=== PATIENT | male | born 1965 | race Caucasian/White ===

== ENCOUNTER 2018-04-13 10:55 | Emergency (ER) | payer OTHER ==
[2018-04-13 11:13] VITALS: BP 116/75; PULSE 90; BMI 28.1
--- NOTE | 2018-04-13 11:38 | PDOC ---
Attending Attestation - HPI HPI: 04/13/18 12:55 The patient is a 52 year old male with a significant PMH of diabetes and hyperlipidemia who presents to the emergency department with a worsening right foot wound for about 3 weeks. The patient reports that he was wearing the wrong shoes while playing basketball 3 weeks ago by which he obtained a blister on his right great toe. The patient reports that his blister never healed. He states that he has been experiencing some associated clarke discharge with his right great toe blister. The patient states that he has been putting antibiotic cream on his toe but, denies seeing a doctor regarding his wound. The patient denies any other symptoms. He denies any fever, chills, nausea, vomit, diarrhea ,constipation or urinary symptoms. He denies any chest pain, shortness of breath , headache and dizziness. The patient denies any other complaints. PCP: Dr. Navarro - Physicial Exam PE: 04/13/18 12:55 GENERAL: Awake, alert, and fully oriented, in no acute distress HEAD: No signs of trauma EYES: PERRLA, EOMI, sclera anicteric, conjunctiva clear ENT: Auricles normal inspection, hearing grossly normal, nares patent, oropharynx clear without exudates. Moist mucosa NECK: Normal ROM, supple, no lymphadenopathy, JVD, or masses LUNGS: Breath sounds equal, clear to auscultation bilaterally. No wheezes, and no crackles HEART: Regular rate and rhythm, normal S1 and S2, no murmurs, rubs or gallops ABDOMEN: Soft, nontender, normoactive bowel sounds. No guarding, no rebound. No masses EXTREMITIES: (+)decreased sensation in right foot, swelling in right ankle, wound under great toe and between 1st and 2nd digit, tender at proximal aspect of wound over bone, soft tissue swelling, warm and red. Normal range of motion. No clubbing or cyanosis. No cords. NEUROLOGICAL: Cranial nerves II through XII grossly intact. Normal speech, normal gait SKIN: Warm, Dry, normal turgor, no rashes or lesions noted. Documentation prepared by Clint Panchal, acting as medical customer service representative for Neelima Beth MD <Clint Panchal - Last Filed: 04/13/18 12:55> - Resident Resident Name: Bill Torres - ED Attending Attestation I have performed the following: I have examined & evaluated the patient, The case was reviewed & discussed with the resident, I agree w/resident's findings & plan, Exceptions are as noted - Medical Decision Making 04/13/18 11:38 I, Dr. Neelima Beth, DO, attest that this document has been prepared under my direction and personally reviewed by me in its entirety. I further attest, that it accurately reflects all work, treatment, procedures and medical decision -making performed by me. 04/13/18 12:17 a/p: 52yo male with DM with R big toe ulceration, swelling, mild redness, no lymphangitic spread -concern for diabetic foot wound -has not had abx during this injury -no active drainage from the wound -no lymphangitic spread -mild swelling to the foot, no crepitus palpated -concern given pain to the toe - will obtain foot xray, labs -no f/c or systemic symptoms -will monitor and reassess 04/13/18 13:[address] Escalante - will see the patient in wound care clinic on Monday at 11am <Neelima Beth - Last Filed: 04/13/18 15:54> Discharge Disposition - Discharge Dispostion Decision to Admit order: No <Neelima Beth - Last Filed: 04/13/18 15:54> - Diagnosis Foot ulcer - Discharge Dispostion Disposition: HOME Condition at time of disposition: Stable - Prescriptions Prescriptions: Clindamycin [Cleocin -] 450 mg PO Q8H #90 capsule - Referrals Referrals: Teo Navarro MD [Primary Care Provider] - Jose Luis Escalante MD [Staff Physician] - - Patient Instructions Printed Discharge Instructions: DI for Wound Infection Additional Instructions: Please follow up on Monday morning at 11 am in the wound care clinic with Dr. Escalante. - Post Discharge Activity
--- NOTE | 2018-04-13 12:03 | PDOC ---
History of Present Illness - General Chief Complaint: Wound Stated Complaint: RT FOOT WOUND Time Seen by Provider: 04/13/18 11:38 History Source: Patient Exam Limitations: No Limitations - History of Present Illness Initial Comments: 04/13/18 11:57 The patient is a 52M with a PMH of DM and HLD who presents to the ER with R great toe pain. The patient states that he was playing basketball in the wrong shoes and developed a blister 3 weeks ago. Since then, the skin has peeled away and it has not healed. He admits to aldana drainage from the site but denies fevers, chills, nausea, vomiting. He has never had this in the past. Past History - Past Medical History Allergies/Adverse Reactions: Allergies Allergy/AdvReac Type Severity Reaction Status Date / Time No Known Allergies Allergy Verified 04/13/18 11:07 Home Medications: Ambulatory Orders Atorvastatin Calcium 20 mg PO DAILY 04/13/18 Carbamazepine 200 mg PO BID 04/13/18 Clindamycin [Cleocin -] 450 mg PO Q8H #90 capsule 04/13/18 Insulin Glargine,Hum.rec.anlog [Basaglar Kwikpen U-100] 0 unit SQ DAILY Lisinopril [Zestril] 2.5 mg PO DAILY 04/13/18 Tamsulosin HCl 0.4 mg PO DAILY 04/13/18 COPD: No Diabetes: Yes - Suicide/Smoking/Psychosocial Hx Smoking History: Never smoked Review of Systems - Review of Systems Able to Perform ROS?: Yes Is the patient limited Malian proficient: No Constitutional: No: Chills, Fever HEENTM: No: Recent change in vision, Hearing Loss ABD/GI: No: Nausea, Vomiting Integumentary: Yes: Lesions (R great toe). No: Change in Color Neurological: Yes: Numbness (Chronic). No: Tingling, Weakness *Physical Exam - Vital Signs Last Vital Signs Temp Pulse Resp BP Pulse Ox 97.9 F 90 19 116/75 98 04/13/18 11:07 04/13/18 11:07 04/13/18 11:07 04/13/18 11:07 04/13/18 11:07 - Physical Exam Comments: 04/13/18 11:59 GENERAL: Well developed, well nourished. Awake and alert. No acute distress. HEENT: Normocephalic, atraumatic. Hearing grossly normal. Moist mucous membranes. NECK: Supple. Full ROM. MUSCULOSKELETAL: Normal range of motion at all joints. No bony deformities or tenderness. EXTREMITIES: 1.5x1cm wound on plantar surface of R great toe down to dermis. No erythema or drainage noted. No cyanosis. No clubbing. 1+ edema in b/l LE. No calf tenderness or swelling. SKIN: Warm and dry. Normal capillary refill. No rashes. No jaundice. NEUROLOGICAL: Alert, awake, appropriate. Cranial nerves 2-12 intact. Normal speech. Gait is normal without ataxia. PSYCHIATRIC: Cooperative. Good eye contact. Appropriate mood and affect. ED Treatment Course - LABORATORY CBC & Chemistry Diagram: 04/13/18 12:35 04/13/18 12:35 - RADIOLOGY Radiology Studies Ordered: Category Date Time Status FOOT-RIGHT [RAD] Stat Radiology 04/13/18 11:53 Ordered Medical Decision Making - Medical Decision Making 04/13/18 12:01 The patient is a 52M with a PMH of DM and HLD who presents to the ER with complaints of R plantar ulcer. Will order labs and imaging, concern for osteo vs infected diabetic foot wound vs nonhealing diabetic ulcer. 04/13/18 13:05 Preliminary read of foot XR negative. Pending labs. 04/13/18 13:21 Labs WNL. Will d/c pt home with wound f/u and abx. *DC/Admit/Observation/Transfer Diagnosis at time of Disposition: Foot ulcer - Discharge Dispostion Disposition: HOME Condition at time of disposition: Stable - Prescriptions Prescriptions: Clindamycin [Cleocin -] 450 mg PO Q8H #90 capsule - Referrals Referrals: Teo Navarro MD [Primary Care Provider] - Jose Luis Escalante MD [Staff Physician] - - Patient Instructions Printed Discharge Instructions: DI for Wound Infection Additional Instructions: Please follow up on Monday morning at 11 am in the wound care clinic with Dr. Escalante. - Post Discharge Activity
[2018-04-13 12:45] LABS: BASO % 0.8 % (0-2.0); EOS % 2.5 % (0-4.5); HEMATOCRIT 34.7 % (35.4-49); HEMOGLOBIN 11.8 GM/dL (11.7-16.9); MCH 29.5 pg (25.7-33.7); MEAN CELL VOLUME 86.9 fl (80-96); MEAN PLT VOLUME 7.9 fl (7.5-11.1); MONO % 10.2 % (3.8-10.2); NEUT % 66.5 % (42.8-82.8); PLATELET COUNT 231 K/MM3 (134-434); RDW 13.5 % (11.9-15.9); WHITE BLOOD COUNT 7.2 K/mm3 (4.0-10.0)
[2018-04-13 13:03] LABS: ALBUMIN 3.7 g/dl (3.4-5.0); ALK PHOS 90 U/L (45-117); ANION GAP 5 MMOL/L (8-16); BILIRUBIN,TOTAL 0.1 mg/dL (0.2-1.0); BLOOD UREA NITROGEN 18 mg/dL (7-18); CALCIUM 8.7 mg/dL (8.5-10.1); CHLORIDE 106 mmol/L (98-107); CO2 29 mmol/L (21-32); CREATININE 1.5 mg/dL (0.7-1.3); GLUCOSE,RANDOM 232 mg/dL (74-106); POTASSIUM 4.7 mmol/L (3.5-5.1); SGOT/AST 16 U/L (15-37); SGPT/ALT 20 U/L (12-78); SODIUM 140 mmol/L (136-145); TOT PROT 7.3 g/dl (6.4-8.2)
[2018-04-13] MEDS ORDERED: CLINDAMYCIN 600MG PREMIX IVPB 600 MG/50 ML BAG IVPB ONE ×2 (13:16→14:48)
[2018-04-13 16:46] VITALS: TEMP 98
== END 2018-04-13 16:46 | disposition home or self-care (01) ==
LOC: JER 10:55
DX: E78.5 Hyperlipidemia, unspecified (principal); E11.621 Type 2 diabetes mellitus with foot ulcer; R05 Cough
CPT/HCPCS: 36415; 73630-TC-RT-FY; 80053; 85025; 85651; 86140; 96365; 99282-25

== ENCOUNTER 2018-05-17 17:52 | Inpatient (IN) | payer OTHER ==
--- NOTE | 2018-05-17 18:12 | PDOC ---
Rapid Medical Evaluation Time Seen by Provider: 05/17/18 18:07 Medical Evaluation: Allergies Allergy/AdvReac Type Severity Reaction Status Date / Time No Known Allergies Allergy Verified 04/16/18 10:31 I have performed a brief in-person evaluation of this patient. The patient presents with a chief complaint of: insulin dependent DM. wounds to right foot. tactile fever today Pertinent physical exam findings: right foot covered and in boot I have ordered the following: labs, xray of right toes The patient will proceed to the ED for further evaluation. Discharge Disposition - Diagnosis Toe infection - Referrals - Patient Instructions - Post Discharge Activity
[2018-05-17 19:03] LABS: BASO % 0.6 % (0-2.0); EOS % 1.1 % (0-4.5); HEMATOCRIT 31.8 % (35.4-49); HEMOGLOBIN 10.5 GM/dL (11.7-16.9); LYMPH % 9.3 % (8-40); MCH 28.6 pg (25.7-33.7); MCHC 33.2 g/dl (32.0-35.9); MEAN CELL VOLUME 86.4 fl (80-96); MEAN PLT VOLUME 7.7 fl (7.5-11.1); MONO % 11.2 % (3.8-10.2); NEUT % 77.8 % (42.8-82.8); PLATELET COUNT 207 K/MM3 (134-434); RBC 3.68 M/mm3 (4.00-5.60); RDW 13.4 % (11.9-15.9); WHITE BLOOD COUNT 12.5 K/mm3 (4.0-10.0)
--- NOTE | 2018-05-17 19:07 | PDOC ---
History of Present Illness - General Chief Complaint: Wound Stated Complaint: RT FOOT PAIN Time Seen by Provider: 05/17/18 18:07 - History of Present Illness Initial Comments: 52yo M with DM and HLD presenting with diabetic foot ulcer on right foot. The wound started as a blister two months ago on the great toe. Was seen in this ED in March for this. Referred to wound care and seen by Dr. Escalante. Patient received 18 out of 20 prescribed hyperbaric wound healing sessions and completed antibiotic course, clindamycin (per chart review). He noticed in the last day or two that the wound had increased in size to the second, third, and fourth digits and has drained clear fluid. Patient reports subjective fever and chills at home. Denies chest pain, shortness of breath, or abdominal pain. Past History - Past Medical History Allergies/Adverse Reactions: Allergies Allergy/AdvReac Type Severity Reaction Status Date / Time benzydamine Allergy Difficulty Verified 05/17/18 22:18 Breathing Home Medications: Ambulatory Orders Atorvastatin Calcium 20 mg PO DAILY 04/13/18 Carbamazepine 200 mg PO BID 04/13/18 Insulin Glargine,Hum.rec.anlog [Basaglar Kwikpen U-100] 0 unit SQ DAILY Lisinopril [Zestril] 2.5 mg PO DAILY 04/13/18 Tamsulosin HCl 0.4 mg PO DAILY 04/13/18 COPD: No Diabetes: Yes Dialysis: Yes HTN: Yes Hypercholesterolemia: Yes - Suicide/Smoking/Psychosocial Hx Smoking History: Never smoked Have you smoked in the past 12 months: No Information on smoking cessation initiated: No Hx Alcohol Use: No Drug/Substance Use Hx: No Review of Systems - Review of Systems Comments:: Constitutional: +fever, +chills Cardiovascular: no chest pain, no palpitations Respiratory: no cough, no shortness of breath Gastrointestinal: no abdominal pain, +nausea, no vomiting Musculoskeletal: no myalgia, no arthralgia Skin: +foot wound, no itching Neurologic: +headache, no dizziness *Physical Exam - Vital Signs Last Vital Signs Temp Pulse Resp BP Pulse Ox 98.6 F 118 H 20 105/72 99 05/17/18 18:08 05/17/18 18:08 05/17/18 18:08 05/17/18 18:05/17/18 18:08 - Physical Exam Comments: General: Awake, alert, and fully oriented, in no acute distress Head: no signs of trauma Eyes: EOMI, sclera anicteric ENT: Moist mucus membranes, Neck: Normal ROM, supple Lungs: Lungs clear, Normal breath sounds Cardio: Regular rhythm, S1 and S2 present Abdomen: Soft, nontender Extremities: Normal range of motion, Distal pulses present R. foot: Neurovascularly intact with 2+ pulse; Grade 2 ulcer: 1st, 2nd, 3rd, 4th digits with sloughed skin granulation tissue and lymphatic drainage SKIN: Warm, Dry, normal turgor Neurologic: Cranial nerves II through XII grossly intact. Normal speech ED Treatment Course - LABORATORY CBC & Chemistry Diagram: 05/17/18 18:45 05/17/18 18:45 - ADDITIONAL ORDERS Additional order review: 05/17/18 18:45 RBC 3.68 L MCV 86.4 MCHC 33.2 RDW 13.4 MPV 7.7 Neutrophils % 77.8 Lymphocytes % 9.3 D Monocytes % 11.2 H Eosinophils % 1.1 Basophils % 0.6 Medical Decision Making - Medical Decision Making 52yo M with DM and HLD presenting with diabetic ulcer on right foot. Reported subjective fever and chills. Labs: WBC 12.5 (up from 7.2 in 04/13) Xray: no air in soft tissue, likely not osteomyelitic Failed outpatient clindamycin. Ordered vancomycin and zosyn 05/17/18 20:46 Dr. Beth discussed case with inpatient team who accepted patient for admission. 05/18/18 00:40 *DC/Admit/Observation/Transfer Diagnosis at time of Disposition: Toe infection, Diabetic foot ulcer - Discharge Dispostion Condition at time of disposition: Fair - Referrals - Patient Instructions - Post Discharge Activity
--- NOTE | 2018-05-17 19:25 | PDOC ---
Attending Attestation - HPI HPI: 05/17/18 21:47 The patient is a 52 year old male with a significant past medical history of diabetes and HLD who presents to the ED with worsening right toe swelling and draining for the past 2 days. Patient is currently being treated for diabetic toe infection in his right toe. Patient grew out MRSA and pseudomonas on all of his toes and currently being treated at wound care. Patient states he finished his course of clindamycin 10 days ago. Patient comes into the ED today for worsening swelling and draining of his 2nd, 3rd, 4th, and 5th right phalanges. He reports cramping like pain on his toes that radiates to his right ankle, knee and upper thigh. Patient states he keeps his right foot dry and denies wearing any wet shoes. Denies fever or chills. Denies any other symptoms. Documentation prepared by Carri Ray, acting as pediatrician/medical doctor for Neelima Beth DO - Physicial Exam PE: 05/17/18 21:48 Constitutional: Awake, alert, oriented. No acute distress. Head: Normocephalic. Atraumatic Musculoskeletal: + right foot: under the great toe there is a wound, no purulent drainage some granulated tissue. In the proximal area of the toe and across bases of MTP there us fogginess in the fluid tissue, no erythema. There is tissue breakdown, no sangisagnous breakdown, there is pain and edema. Pedal pulses intact. Slight edema of right foot compared to left, sensation intact, normal capillary refill. Neurological: Alert and oriented to person, place, and time. Normal speech. Psychiatric: Good eye contact. Normal interaction, affect and behavior. <Carri Ray - Last Filed: 05/17/18 21:47> - Resident Resident Name: Chanelle Osuna - ED Attending Attestation I have performed the following: I have examined & evaluated the patient, The case was reviewed & discussed with the resident, I agree w/resident's findings & plan, Exceptions are as noted - Medical Decision Making 05/17/18 19:25 I, Dr. Neelima Beth, DO, attest that this document has been prepared under my direction and personally reviewed by me in its entirety. I further attest, that it accurately reflects all work, treatment, procedures and medical decision -making performed by me. 05/17/18 21:42 a/p: 52yo male with dm with swelling, drainage from R foot -being treated with HBO and wound care to injury to L big toe - finished clinda and using santyl to R big toe -now with serosanguinous drainage and swelling, bogginess to rest of toes and tissue breakdown -pt will need inpt abx and eval by Dr. Escalante -will send labs, cultures -prior wound culture grows MRSA and pseudomonas 05/17/18 21:46 microblog sent to [facility] for admission 05/18/18 00:[address] Marks who accepts pt to service <Neelima Beth - Last Filed: 05/18/18 00:46> Discharge Disposition - Discharge Dispostion Decision to Admit order: Yes <Neelima Beth - Last Filed: 05/18/18 00:46> - Diagnosis Toe infection, Diabetic foot ulcer - Discharge Dispostion Condition at time of disposition: Fair - Referrals Referrals: Teo Navarro MD [Primary Care Provider] - - Patient Instructions - Post Discharge Activity
[2018-05-17 19:55] LABS: ALBUMIN 3.7 g/dl (3.4-5.0); ALK PHOS 63 U/L (45-117); ANION GAP 10 MMOL/L (8-16); BILIRUBIN,TOTAL 0.2 mg/dL (0.2-1); BLOOD UREA NITROGEN 21 mg/dL (7-18); CALCIUM 8.8 mg/dL (8.5-10.1); CHLORIDE 105 mmol/L (98-107); CO2 24 mmol/L (21-32); CREATININE 1.7 mg/dL (0.55-1.3); GLUCOSE,RANDOM 129 mg/dL (74-106); POTASSIUM 4.4 mmol/L (3.5-5.1); SGOT/AST 13 U/L (15-37); SGPT/ALT 22 U/L (13-61); SODIUM 139 mmol/L (136-145)
[2018-05-17] MEDS ORDERED: VANCOMYCIN 1,000 MG in DEXTROSE 5%-WATER - 250 ML IVPB ONE (21:02)
[2018-05-17] MEDS ORDERED: PIPERACILLIN/TAZOB 3.375 GM 3.375 GM in DEXTROSE 5%-WATER - 50 ML IVPB ONE (21:02)
[2018-05-17] MEDS ORDERED: VANCOMYCIN 1 GRAM (PRE-DOCKED) 1,000 MG/250 ML BAG IVPB ONE (21:45)
[2018-05-17] MEDS ORDERED: ACETAMINOPHEN 1000 MG/100 ML VIAL (NON FORMULARY) IVPB ONE (22:33)
[2018-05-17] MEDS ORDERED: PIPERACILLIN/TAZOB 3.375 GM 3.375 GM/50 ML BAG IVPB ONE (23:49)
[2018-05-17] MEDS ORDERED: ACETAMINOPHEN INJECTION 100 ML IVPB ONE (23:49)
--- NOTE | 2018-05-18 01:27 | PN ---
Teaching Attending Note Name of Resident: Amy Ibanez ATTENDING PHYSICIAN STATEMENT I saw and evaluated the patient. I reviewed the resident's note and discussed the case with the resident. I agree with the resident's findings and plan as documented. SUBJECTIVE: 52 y/o M with non healing foot wound, with wound care and hyperbaric oxygen treatment and no significant improvement, referred to ED by Dr Escalante . OBJECTIVE: Agree with Exam as documented in resident's H&P. CBCD WBC 12.5 K/mm3 (4.0-10.0) H 05/17/18 18:45 RBC 3.68 M/mm3 (4.00-5.60) L 05/17/18 18:45 Hgb 10.5 GM/dL (11.7-16.9) L 05/17/18 18:45 Hct 31.8 % (35.4-49) L 05/17/18 18:45 MCV 86.4 fl (80-96) 05/17/18 18:45 MCHC 33.2 g/dl (32.0-35.9) 05/17/18 18:45 RDW 13.4 % (11.9-15.9) 05/17/18 18:45 Plt Count 207 K/MM3 (134-434) 05/17/18 18:45 MPV 7.7 fl (7.5-11.1) 05/17/18 18:45 CMP Sodium 139 mmol/L (136-145) 05/17/18 18:45 Potassium 4.4 mmol/L (3.5-5.1) 05/17/18 18:45 Chloride 105 mmol/L (98-107) 05/17/18 18:45 Carbon Dioxide 24 mmol/L (21-32) 05/17/18 18:45 Anion Gap 10 MMOL/L (8-16) 05/17/18 18:45 BUN 21 mg/dL (7-18) H 05/17/18 18:45 Creatinine 1.7 mg/dL (0.55-1.3) H 05/17/18 18:45 Creat Clearance w eGFR 42.21 (>60) 05/17/18 18:45 Random Glucose 129 mg/dL (74-106) H 05/17/18 18:45 Calcium 8.8 mg/dL (8.5-10.1) 05/17/18 18:45 Total Bilirubin 0.2 mg/dL (0.2-1) 05/17/18 18:45 AST 13 U/L (15-37) L 05/17/18 18:45 ALT 22 U/L (13-61) 05/17/18 18:45 Alkaline Phosphatase 63 U/L (45-117) 05/17/18 18:45 Total Protein 7.0 g/dl (6.4-8.2) 05/17/18 18:45 Albumin 3.7 g/dl (3.4-5.0) 05/17/18 18:45 ASSESSMENT AND PLAN: Non healing diabetic foot wound. R/O Osteomyelitis Vancomycin and Zosyn wound cultures MRI foot Vascular consult ID consult DVT prophylaxis DM2 RISS
--- NOTE | 2018-05-18 03:01 | HP ---
CHIEF COMPLAINT: multiple R foot ulcers PCP: Dr. Teo Navarro HISTORY OF PRESENT ILLNESS: 52M w/ pmhx of DM and HLD presented today w/ 2 day h/o multiple open wound ulcers on his R foot. He states that about 2 months ago, he had a wound ulcer on his R big toe and was seen by Dr. Escalante for treatment of this ulcer. He reports that he completed 18 out of 20 hyperbaric sessions within the past month , but was not able to complete the remaining sessions due to nausea and claustrophobia while in hyperbaric chamber. He states that since seeing Dr. Escalante, he has been conscientious about following directions with wound care by changing his dressing at appropriate times and keeping his foot dry while showering. Over the past 2 days, however, he noticed significant clear drainage coming from new multiple wound ulcers between his toes on this R foot. ER course was notable for: (1) Vanc 1 gm and Zosyn 3.375 gm given (2) Blood cx pending, ID/podiatry/vasc consult ordered (3) Toe Xray showed no gross bone destruction or soft tissue air identified Recent Travel: Denies PAST MEDICAL HISTORY: DM HLD BPH PAST SURGICAL HISTORY: Lasik sx Social History: Smoking: Used to smoke 1 ppd x2 years, but quit 3 years ago Alcohol: Used to drink 1 bottle of vodka/day x2 years, but quit 3 years ago Drugs: Denies Family History: Mother- HTN, glaucoma Allergies benzydamine Allergy (Verified 05/17/18 22:18) Difficulty Breathing HOME MEDICATIONS: Home Medications Medication Instructions Recorded Atorvastatin Calcium 20 mg PO DAILY 04/13/18 Carbamazepine 200 mg PO BID 04/13/18 Insulin Glargine,Hum.rec.anlog 0 unit SQ DAILY 04/13/18 [Basaglar Kwikpen U-100] Lisinopril [Zestril] 2.5 mg PO DAILY 04/13/18 Tamsulosin HCl 0.4 mg PO DAILY 04/13/18 REVIEW OF SYSTEMS CONSTITUTIONAL: Absent: fever, chills, diaphoresis, generalized weakness, malaise, loss of appetite, weight change HEENT: Absent: rhinorrhea, nasal congestion, throat pain, throat swelling, difficulty swallowing, mouth swelling, ear pain, eye pain, visual changes CARDIOVASCULAR: Absent: chest pain, syncope, palpitations, irregular heart rate, lightheadedness , peripheral edema RESPIRATORY: Absent: cough, shortness of breath, dyspnea with exertion, orthopnea, wheezing, stridor, hemoptysis GASTROINTESTINAL: Absent: abdominal pain, abdominal distension, nausea, vomiting, diarrhea, constipation GENITOURINARY: Absent: dysuria, frequency, urgency, hesitancy, hematuria, flank pain, genital pain MUSCULOSKELETAL: +intermittent, crampy R lower leg pain radiating to above knee Absent: myalgia, arthralgia, joint swelling, back pain, neck pain SKIN: +multiple draining wound ulcers between multiple toes on R foot Absent: rash, itching, pallor HEMATOLOGIC/IMMUNOLOGIC: Absent: easy bleeding, easy bruising, lymphadenopathy, frequent infections ENDOCRINE: Absent: unexplained weight gain, unexplained weight loss, heat intolerance, cold intolerance NEUROLOGIC: Absent: headache, focal weakness or paresthesias, dizziness, unsteady gait, seizure, mental status changes, bladder or bowel incontinence PSYCHIATRIC: Absent: anxiety, depression, suicidal or homicidal ideation, hallucinations. PHYSICAL EXAMINATION Vital Signs - 24 hr 05/17/18 18:08 Temperature 98.6 F Pulse Rate 118 H Respiratory 20 Rate Blood Pressure 105/72 O2 Sat by Pulse 99 Oximetry (%) GENERAL: Healthy-appearing, pleasant male. AAOx3. NAD. HEENT: NC/AT. Face symmetric. TREVOR. EOMI. Moist mucus membranes. NECK: Supple. No LAD/JVD. No neck tenderness. Good ROM. LUNGS: CTA B/L. No w/r/r noted. Symmetric chest rise. HEART: RRR. Normal S1, S2. No m/r/g noted. ABDOMEN: Soft, NT/ND. Normactive bowel sounds. No masses or bruits noted. MUSCULOSKELETAL: Normal range of motion at all joints. No bony deformities or tenderness. UPPER EXTREMITIES: 2+ pulses, warm, well-perfused. No cyanosis. No clubbing. No peripheral edema. LOWER EXTREMITIES: 2+ pulses, warm, well-perfused. No calf tenderness. No peripheral edema. Healing, non-draining wound ulcer on dorsomedial aspect of 1st toe of R foot. Blistering and draining R foot wound ulcers on medial and lateral aspect of 2nd toe, lateral side of 3rd toe, and between 4th and 5th toe. NEUROLOGICAL: Cranial nerves II-XII intact. Normal speech. Normal gait. PSYCHIATRIC: Cooperative. Good eye contact. Appropriate mood and affect. SKIN: Warm, dry, normal turgor, normal capillary refill. Laboratory Results - last 24 hr 05/17/18 05/17/18 18:45 18:45 WBC 12.5 H RBC 3.68 L Hgb 10.5 L Hct 31.8 L MCV 86.4 MCH 28.6 MCHC 33.2 RDW 13.4 Plt Count 207 MPV 7.7 Absolute Neuts (auto) 9.8 H Neutrophils % 77.8 Lymphocytes % 9.3 D Monocytes % 11.2 H Eosinophils % 1.1 Basophils % 0.6 Nucleated RBC % 0 Sodium 139 Potassium 4.4 Chloride 105 Carbon Dioxide 24 Anion Gap 10 BUN 21 H Creatinine 1.7 H Creat Clearance w eGFR 42.21 Random Glucose 129 H Calcium 8.8 Total Bilirubin 0.2 AST 13 L ALT 22 Alkaline Phosphatase 63 Total Protein 7.0 Albumin 3.7 ASSESSMENT/PLAN: 83M w/ pmhx of DM and HLD who presented with a new multiple non-healing, draining wound ulcers on his R foot. #Multiple R foot wound ulcers r/o osteomyelitis -Vanc/zosyn given -cont vanc/zosyn coverage pending ID recs and c/s of cultures -podiatry/ID/vasc consult ordered -f/u CRP/ESR -Toe xray showed no gross bone destruction or soft tissue air identified. Consider MRI to r/o osteomyelitis -f/u blood and wound cultures -daily wound care -Tylenol 650 mg PO Q4H for pain #DM; controlled. -resume home med Levemir 20U SQ -ISS -resume home med Lisinopril 2.5 mg PO QD as pt states he takes specifically for renal protection -BGMs ACHS -A1c not needed as pt states he recently had blood work done and is waiting for results #BPH -resume home med Tamsulosin 0.4 mg PO QD #HLD -resume home med Atorvastatin 20 mg PO HS #DVT Ppx -Lovenox 40 mg SQ QD #FEN -no IVf -recheck lytes in AM -Diabetic diet dispo -admit to med/surg Visit type - Emergency Visit Emergency Visit: Yes ED Registration Date: 05/18/18 Care time: The patient presented to the Emergency Department on the above date and was hospitalized for further evaluation of their emergent condition. - New Patient This patient is new to me today: Yes Date on this admission: 05/18/18 - Critical Care Critical Care patient: No Hospitalist Screening - Colonoscopy Questionnaire Colonoscopy Questionnaire: Colonoscopy Questionnaire - Patient: 50 - 75 years old and never had a screening colonoscopy: Unknown History of colon or rectal polyps, or CA: Unknown History of IBD, Crohn's disease or UC: Unknown History of abdominal radiation therapy as a child: Unknown - Relative: 1 with colon or rectal CA, or polyps at age 60 or younger: Unknown Colon or rectal CA diagnosed at age 45 or younger: Unknown Multiple relatives with colon or rectal CA: Unknown - Outcome: Screening Result: Negative Screen
[2018-05-18] MEDS: HEPARIN NA (PORCINE) 5,000 UNITS/ML 1ML VIAL SQ SCH ×3 (06:13→23:24)
[2018-05-18] MEDS ORDERED: HEPARIN NA (PORCINE) 5,000 UNITS/ML 1ML VIAL ONE (06:39)
[2018-05-18] MEDS: INSULIN SLIDING SCALE (NOVOLOG) 1 VIAL SQ SCH ×4 (07:08→23:25)
[2018-05-18] MEDS ORDERED: ACETAMINOPHEN 325 MG TABLET (FP) ONE (08:27)
[2018-05-18] MEDS: ACETAMINOPHEN 325 MG TABLET (FP) PO PRN ×3 (08:30→23:27)
[2018-05-18 09:23] LABS: BASO % 0.7 % (0-2.0); EOS % 1.1 % (0-4.5); HEMATOCRIT 36.4 % (35.4-49); LYMPH % 14.4 % (8-40); MCH 28.2 pg (25.7-33.7); MCHC 32.9 g/dl (32.0-35.9); MEAN CELL VOLUME 85.9 fl (80-96); MEAN PLT VOLUME 7.8 fl (7.5-11.1); MONO % 12.6 % (3.8-10.2); NEUT % 71.2 % (42.8-82.8); PLATELET COUNT 207 K/MM3 (134-434); RBC 4.24 M/mm3 (4.00-5.60); RDW 13.2 % (11.9-15.9); WHITE BLOOD COUNT 13.8 K/mm3 (4.0-10.0)
[2018-05-18 09:42] LABS: ANION GAP 10 MMOL/L (8-16); BLOOD UREA NITROGEN 18 mg/dL (7-18); CALCIUM 9.1 mg/dL (8.5-10.1); CHLORIDE 102 mmol/L (98-107); CO2 25 mmol/L (21-32); CREATININE 1.3 mg/dL (0.55-1.3); GLUCOSE,RANDOM 120 mg/dL (74-106); POTASSIUM 4.2 mmol/L (3.5-5.1); SODIUM 137 mmol/L (136-145)
[2018-05-18 10:26] LABS: INR 1.15 (0.83-1.09); PROTHROMBIN TIME (PATIENT) 13.6 SEC (9.7-13.0)
[2018-05-18] MEDS: TAMSULOSIN HCL 0.4 MG CAP PO SCH (11:32)
[2018-05-18] MEDS: SODIUM CHLORIDE 1,000 ML IV SCH (11:32)
[2018-05-18] MEDS: LISINOPRIL 5 MG TABLET (FP) PO SCH (11:33)
[2018-05-18] MEDS ORDERED: INSULIN (NOVOLOG) ASPART 100 UNITS/ML 10ML VIAL ONE ×3 (12:19→23:00)
--- NOTE | 2018-05-18 16:10 | PN ---
Progress Note (short form) - Note Progress Note: 52yo M h/o of Rt diabetic foot ulcer, known to wound care service. Presented to the ED with complaint of worsening wound and drainage. Denies fever, chills , n/v. PE: Gen: A&O x 3 Resp: breathing comfortalby Ext; Rt foot shows ulcerations on plantar aspects of toes 2,3,4 with serous drainage, no edema. +2 pedal pulse, mild decrease in sensation. Problem List - Problems (1) Diabetic foot ulcer Assessment/Plan: Plan -continue abx as per ID -no vascular interventions at this time. -appreciate podiatry recommendations. -Apligraf and clean dressing. Code(s): E11.621 - TYPE 2 DIABETES MELLITUS WITH FOOT ULCER; L97.509 - NON- PRESSURE CHRONIC ULCER OTH PRT UNSP FOOT W UNSP SEVERITY
[2018-05-18 16:48] VITALS: BMI 27.6
[2018-05-18] MEDS ORDERED: FLU VACCINE QUAD 60 MCG/0.5 ML (MDV 18-19) IM ONE (16:48)
[2018-05-18] MEDS ORDERED: PNEUMOC 13-VAL CONJ-DIP CRM/PF 0.5 ML DISP.SYRIN IM ONE (16:48)
[2018-05-18] MEDS ORDERED: PNEUMOCOCCAL 23 VACCINE 0.5 ML VIAL IM ONE (17:00)
--- NOTE | 2018-05-18 17:23 | PN ---
Progress Note (short form) - Note Progress Note: ID consult dictated Cellulitis R 2nd/ 3rd toes + wound c/s MRSA/Pseudomonas Continue empiric vancomycin/ zosyn
[2018-05-18] MEDS ORDERED: DEXTROSE 5%-WATER - 50 ML IVPB ONE (18:00)
[2018-05-18] MEDS ORDERED: PIPERACILLIN/TAZOBACTAM 3.375 GM VIAL IVPB ONE (18:00)
[2018-05-18] MEDS: PIPERACILLIN/TAZOB 3.375 GM 3.375 GM in DEXTROSE 5%-WATER - 50 ML IVPB SCH (18:02)
--- NOTE | 2018-05-18 18:25 | PN ---
Teaching Attending Note Name of Resident: Amisha Resendiz ATTENDING PHYSICIAN STATEMENT I saw and evaluated the patient. I reviewed the resident's note and discussed the case with the resident. I agree with the resident's findings and plan as documented with exceptions below. SUBJECTIVE: Patient seen and examined. Right foot with some pain, no fevers, chills. Reports trauma to right great toe 2 months ago. OBJECTIVE: Vital Signs Period Temp Pulse Resp BP Sys/Ruffin Pulse Ox Last 24 Hr 98.2 F-99.0 F 89-101 18-20 104-131/65-88 97-99 Intake & Output 05/15/18 05/16/18 05/17/18 05/18/18 23:59 23:59 23:59 23:59 Weight 189 lb 198 lb General: sitting in bed in no acute distress Extremities: Right foot with scaling/maceration in 2/3/4 web spaces with surrounding swelling/erythema on dorsum of foot extending proximally to 2nd and 3rd toes. Right great toe with thickening, resolving ecchymosis, strong DP pulses bilaterally Abdomen:soft, NT, ND, positive bowel sound Chest: CTAB, no rales or wheezing Active Medications Acetaminophen (Tylenol -) 650 mg PO Q4H PRN PRN Reason: Fever Or Pain 1-6 Last Admin: 05/18/18 16:46 Dose: 650 mg Atorvastatin Calcium (Lipitor -) 20 mg PO HS [facility] Heparin Sodium (Porcine) (Heparin -) 5,000 unit SQ TID [facility] Last Admin: 05/18/18 06:13 Dose: 5,000 unit Sodium Chloride (Normal Saline -) 1,000 mls @ 100 mls/hr IV ASDIR [facility] Last Admin: 05/18/18 11:32 Dose: 100 mls/hr Vancomycin HCl 1,000 mg/ (Dextrose) 250 mls @ 166.667 mls/hr IVPB Q12H [facility]; Protocol Piperacillin Sod/Tazobactam (Sod 3.375 gm/ Dextrose) 50 mls @ 100 mls/hr IVPB Q8H-IV [facility]; Protocol Last Admin: 05/18/18 18:02 Dose: 100 mls/hr Insulin Aspart (Novolog Vial Sliding Scale -) 1 vial SQ ACHS [facility]; Protocol Last Admin: 05/18/18 17:12 Dose: 2 units Insulin Detemir (Levemir Vial) 20 units SQ [facility] Lisinopril (Prinivil) 2.5 mg PO DAILY [facility] Last Admin: 05/18/18 11:33 Dose: 2.5 mg Tamsulosin HCl (Flomax -) 0.4 mg PO DAILY@0830 [facility] Last Admin: 05/18/18 11:32 Dose: 0.4 mg Laboratory Results - last 24 hr 05/17/18 05/17/18 05/18/18 18:45 18:45 07:06 WBC 12.5 H RBC 3.68 L Hgb 10.5 L Hct 31.8 L MCV 86.4 MCH 28.6 MCHC 33.2 RDW 13.4 Plt Count 207 MPV 7.7 Absolute Neuts (auto) 9.8 H Neutrophils % 77.8 Lymphocytes % 9.3 D Monocytes % 11.2 H Eosinophils % 1.1 Basophils % 0.6 Nucleated RBC % 0 PT with INR INR Sodium 139 Potassium 4.4 Chloride 105 Carbon Dioxide 24 Anion Gap 10 BUN 21 H Creatinine 1.7 H Creat Clearance w eGFR 42.21 POC Glucometer 115.33263 Random Glucose 129 H Calcium 8.8 Total Bilirubin 0.2 AST 13 L ALT 22 Alkaline Phosphatase 63 Total Protein 7.0 Albumin 3.7 05/18/18 05/18/18 05/18/18 09:15 09:15 09:15 WBC 13.8 H RBC 4.24 Hgb 12.0 Hct 36.4 MCV 85.9 MCH 28.2 MCHC 32.9 RDW 13.2 Plt Count 207 MPV 7.8 Absolute Neuts (auto) 9.8 H Neutrophils % 71.2 Lymphocytes % 14.4 D Monocytes % 12.6 H Eosinophils % 1.1 Basophils % 0.7 Nucleated RBC % 0 PT with INR 13.60 H INR 1.15 H Sodium 137 Potassium 4.2 Chloride 102 Carbon Dioxide 25 Anion Gap 10 BUN 18 Creatinine 1.3 Creat Clearance w eGFR 57.53 POC Glucometer Random Glucose 120 H Calcium 9.1 Total Bilirubin AST ALT Alkaline Phosphatase Total Protein Albumin 05/18/18 16:47 WBC RBC Hgb Hct MCV MCH MCHC RDW Plt Count MPV Absolute Neuts (auto) Neutrophils % Lymphocytes % Monocytes % Eosinophils % Basophils % Nucleated RBC % PT with INR INR Sodium Potassium Chloride Carbon Dioxide Anion Gap BUN Creatinine Creat Clearance w eGFR POC Glucometer 167 Random Glucose Calcium Total Bilirubin AST ALT Alkaline Phosphatase Total Protein Albumin Right foot xray results noted ASSESSMENT AND PLAN: 52 yom with RLE diabetic foot ulcer with cellulitis/sepsis, DARIEL -RLE foot ulcer with cellulitis/early sepsis -DARIEL, likely hypovolumia/sepsis -IDDM -HTN -HLD Plan: ID input noted. Prior wound cx with MRSA/Pseudomonas. Zosyn/vanco day 1. Repeat wound cx. Follow up blood cx. Vascular surgery input noted, wound care. Await podiatry input. Check RLE MRI. Continue IVF, monitor renal function. Resume lisinopril with monitoring. Levemir 10 units daily, ISS, diabetic diet. DVTPPX heparin Dispo pending clinical improvement. Plan discussed with patient in detail, all questions answered.
[2018-05-18] MEDS: VANCOMYCIN 1,000 MG in DEXTROSE 5%-WATER - 250 ML IVPB SCH (18:32)
--- NOTE | 2018-05-18 18:56 | PN ---
Physical Exam: SUBJECTIVE: Patient seen and examined at bedside this morning. Patient reports Right leg pain. Denies fever, chills, headache, chest pain, palpitations, abdominal pain, diarrhea. OBJECTIVE: Vital Signs Period Temp Pulse Resp BP Sys/Ruffin Pulse Ox Last 24 Hr 98.2 F-99.0 F 89-101 18-20 104-131/65-88 97-99 GENERAL: The patient is awake, alert, and fully oriented, in no acute distress. EYES: PERRLA, EOMI, sclera anicteric, conjunctiva clear. No ptosis. ENT: Ears normal, nares patent, oropharynx clear without exudates, moist mucous membranes. NECK: Trachea midline, full range of motion, supple. LUNGS: Breath sounds equal, clear to auscultation bilaterally, no wheezes, no crackles, no accessory muscle use. HEART: Regular rate and rhythm, S1, S2 without murmur, rub or gallop. ABDOMEN: Soft, nontender, nondistended, normoactive bowel sounds. UPPER EXTREMITIES: 2+ pulses, warm, well-perfused, no edema. LOWER EXTREMITIES: 2+ pulses, warm, well-perfused. No calf tenderness. No peripheral edema. +nonpurulent wound ulcer on dorsal of 1st toe, Right foot. +R foot wound ulcers between web spaces of 2nd, 3rd, 4th and 5th toe. NEUROLOGICAL: Cranial nerves II through XII grossly intact. Normal speech, gait not observed. PSYCH: Normal mood, normal affect. SKIN: Warm, dry, normal turgor, no rashes or lesions noted Laboratory Results - last 24 hr 05/17/18 05/17/18 05/18/18 18:45 18:45 07:06 WBC 12.5 H RBC 3.68 L Hgb 10.5 L Hct 31.8 L MCV 86.4 MCH 28.6 MCHC 33.2 RDW 13.4 Plt Count 207 MPV 7.7 Absolute Neuts (auto) 9.8 H Neutrophils % 77.8 Lymphocytes % 9.3 D Monocytes % 11.2 H Eosinophils % 1.1 Basophils % 0.6 Nucleated RBC % 0 PT with INR INR Sodium 139 Potassium 4.4 Chloride 105 Carbon Dioxide 24 Anion Gap 10 BUN 21 H Creatinine 1.7 H Creat Clearance w eGFR 42.21 POC Glucometer 115.12144 Random Glucose 129 H Calcium 8.8 Total Bilirubin 0.2 AST 13 L ALT 22 Alkaline Phosphatase 63 Total Protein 7.0 Albumin 3.7 05/18/18 05/18/18 05/18/18 09:15 09:15 09:15 WBC 13.8 H RBC 4.24 Hgb 12.0 Hct 36.4 MCV 85.9 MCH 28.2 MCHC 32.9 RDW 13.2 Plt Count 207 MPV 7.8 Absolute Neuts (auto) 9.8 H Neutrophils % 71.2 Lymphocytes % 14.4 D Monocytes % 12.6 H Eosinophils % 1.1 Basophils % 0.7 Nucleated RBC % 0 PT with INR 13.60 H INR 1.15 H Sodium 137 Potassium 4.2 Chloride 102 Carbon Dioxide 25 Anion Gap 10 BUN 18 Creatinine 1.3 Creat Clearance w eGFR 57.53 POC Glucometer Random Glucose 120 H Calcium 9.1 Total Bilirubin AST ALT Alkaline Phosphatase Total Protein Albumin 05/18/18 16:47 WBC RBC Hgb Hct MCV MCH MCHC RDW Plt Count MPV Absolute Neuts (auto) Neutrophils % Lymphocytes % Monocytes % Eosinophils % Basophils % Nucleated RBC % PT with INR INR Sodium Potassium Chloride Carbon Dioxide Anion Gap BUN Creatinine Creat Clearance w eGFR POC Glucometer 167 Random Glucose Calcium Total Bilirubin AST ALT Alkaline Phosphatase Total Protein Albumin Active Medications Generic Name Dose Route Start Last Admin Trade Name Freq PRN Reason Stop Dose Admin Acetaminophen 650 mg 05/18/18 08:11 05/18/18 16:46 Tylenol - PO 650 mg Q4H PRN Administration Fever Or Pain 1-6 Atorvastatin Calcium 20 mg 05/18/18 22:00 Lipitor - PO HS [facility] Heparin Sodium (Porcine) 5,000 unit 05/18/18 06:00 05/18/18 06:13 Heparin - SQ 5,000 unit TID [facility] Administration Sodium Chloride 1,000 mls @ 100 mls/hr 05/18/18 09:00 05/18/18 11:32 Normal Saline - IV 100 mls/hr ASDIR [facility]NOR Administration Vancomycin HCl 1,000 mg/ 250 mls @ 166.667 mls/hr 05/18/18 17:15 05/18/18 18: 32 Dextrose IVPB 166.667 mls/hr Q12H [facility] Administration Protocol Piperacillin Sod/Tazobactam 50 mls @ 100 mls/hr 05/18/18 18:00 05/18/18 18:02 Sod 3.375 gm/ Dextrose IVPB 100 mls/hr Q8H-IV [facility] Administration Protocol Insulin Aspart 1 vial 05/18/18 07:00 05/18/18 17:12 Novolog Vial Sliding Scale - SQ 2 units ACHS [facility] Administration Protocol Insulin Detemir 20 units 05/18/18 22:00 Levemir Vial SQ HS [facility] Lisinopril 2.5 mg 05/18/18 10:00 05/18/18 11:33 Prinivil PO 2.5 mg DAILY [facility] Administration Tamsulosin HCl 0.4 mg 05/18/18 08:30 05/18/18 11:32 Flomax - PO 0.4 mg DAILY@0830 [facility] Administration ASSESSMENT/PLAN: Patient is a 52 year old male with past medical history of DM and hyperlipidemia , presented with new, multiple non-healing wound ulcers on his right foot. #Multiple non-healing wound ulcer, right foot: r/o osteomyelitis. -Foot xray, right - no gross bone destruction or soft tissue air identified. -Vanc/zosyn given -Blood and wound cultures pending. -MRI of lower extremity w/o contrast ordered. -ID (Dr. Guzman) consulted. Recommendations appreciated. -Wound culture pending; c/s MRSA/Pseudomonas -Continue empiric Vancomycin and Zosyn pending cultures. -Podiatry (Dr. Glass) consulted. -Vascular (Dr. Escalante) consulted. Recommendations appreciated. -No vascular interventions at this time. -appreciate podiatry recommendations. -Apligraf and clean dressing. -Proper wound care -Tylenol 650mg PRN for pain. #DM: controlled. -resume home med Levemir 20U SQ -ISS -resume home med Lisinopril 2.5 mg PO QD as pt states he takes specifically for renal protection -BGMs ACHS #BPH -resume home med Tamsulosin 0.4 mg PO QD #HLD -resume home med Atorvastatin 20 mg PO HS #FEN -not on any standing fluids -encourage increased oral fluid intake -electrolytes wnl, routine bmp monitoring -Diabetic diet #Prophylaxis -Lovenox 40 mg SQ QD #Disposition -admit to med/surg -continue abx as per ID Visit type - Emergency Visit Emergency Visit: Yes ED Registration Date: 05/18/18 Care time: The patient presented to the Emergency Department on the above date and was hospitalized for further evaluation of their emergent condition. - New Patient This patient is new to me today: Yes Date on this admission: 05/18/18 - Critical Care Critical Care patient: No
--- NOTE | 2018-05-18 19:33 | CONS ---
INFECTIOUS DISEASE CONSULTATION DATE OF CONSULTATION: 05/18/2018 The patient is a 52-year-old, diabetic male who is evaluated for cellulitis of the right foot. He reports developing a blister on his right great toe approximately 2 months ago. He developed a nonhealing wound; for which, he was followed in the wound care center by Dr. Escalante. He had received hyperbaric oxygen treatments. He reports healing of that wound. However, over the past 2-3 days, he developed worsening erythema, warmth, and swelling of the right 2nd and 3rd toes associated with weepage of fluid. he has had subjective fever and chills. He reports being treated previously with clindamycin, finishing this course approximately 10 days ago. PAST MEDICAL HISTORY: Positive for diabetes mellitus, hyperlipidemia. ALLERGIES: BENZYLAMINE. MEDICATIONS: Lipitor, carbamazepine, insulin, and lisinopril. SOCIAL HISTORY: Positive for tobacco use. LABORATORY DATA: White count 13.8, hematocrit 36.4, platelet count 207. BUN 18, creatinine 1.3. PHYSICAL EXAMINATION: General: He is awake and alert. He is not acutely toxic appearing. Vital Signs: Temperature 98.5; blood pressure 131/88; pulse 101, regular; respirations 20 per minute. HEENT: Sclerae are anicteric. Heart: Sounds S1, S2. Lungs: Clear. Abdomen: Soft and nontender. Right Foot: There is a healed ulcer on the plantar aspect of the right great toe. There is diffuse swelling and erythema of the 2nd and 3rd toes with an ulceration present 2nd toe with serous drainage. Erythema extends to the dorsum of the foot. IMPRESSION: 1. Cellulitis, right foot. 2. Diabetes mellitus. 3. History of positive wound culture, methicillin-resistant Staphylococcus aureus and pseudomonas. Await cultures. Empiric antibiotic coverage with vancomycin and Zosyn based on previous wound isolates. Surgical followup. Local wound care. Thank you for the kind referral. MARY WASHBURN M.D. [id number]
[2018-05-18] MEDS: INSULIN (LEVEMIR) 100 UNITS/ML UNITS SQ SCH (23:23)
[2018-05-18] MEDS: ATORVASTATIN CA 20 MG TABLET (FP) PO SCH (23:25)
[2018-05-19] MEDS ORDERED: PIPERACILLIN/TAZOBACTAM 3.375 GM VIAL IVPB ONE ×3 (02:55→16:47)
[2018-05-19] MEDS ORDERED: DEXTROSE 5%-WATER - 50 ML IVPB ONE ×3 (02:56→16:47)
[2018-05-19] MEDS: PIPERACILLIN/TAZOB 3.375 GM 3.375 GM in DEXTROSE 5%-WATER - 50 ML IVPB SCH ×3 (02:59→18:27)
[2018-05-19] MEDS: VANCOMYCIN 1,000 MG in DEXTROSE 5%-WATER - 250 ML IVPB SCH ×2 (05:24→16:52)
--- NOTE | 2018-05-19 05:42 | PN ---
Progress Note (short form) - Note Progress Note: VAscular Surgery Pt seen and examined. Pt has been following in wound care clinic for right great toe ulcer which he got from is shoe playing basketball. Now comes in with cellulitis , fevers of right foot for one day. His toes has sloughing of the skin, and there is significant drainage between toes. Could be abscess. CT of right foot ordered to check for abscess. Pt has palpable pulses. Podiatry to see this morning. Will make npo incase pt needs to go to the OR for podiatry intervention Cherrie Escalante DO
[2018-05-19] MEDS: INSULIN SLIDING SCALE (NOVOLOG) 1 VIAL SQ SCH ×4 (06:07→21:35)
[2018-05-19] MEDS: HEPARIN NA (PORCINE) 5,000 UNITS/ML 1ML VIAL SQ SCH ×3 (06:07→21:31)
--- NOTE | 2018-05-19 07:15 | CONSULT ---
Consult - text type - Consultation Consultation Note: Podiatry Consultation: 52 year old DM M presents with cellulitis R foot. Patient notes he is seen weekly in wound healing center by Dr. Escalante. He had a skin substitute graft applied to the right great toe last week, which has been healing well. He noted increased drainage from surrounding toes with redness which prompted admission. Currently afebrile, VSS. PMHx: DM, HLP, HTN Meds: noted ALL: benzydamine YONATAN: R foot: pedal pulses 1/4, TG warm-warm, CFT brisk to all toes. There is significant skin sloughing 2nd/3rd digits and plantar sulcus, serous drainage present, underlying fibrogranular wound base, there is no probing to bone, there is no probing in the interspace, there is no purulence, no soft tissue crepitus. There is moderate tenderness to palpation. WBC: 13.8 R foot XR: negative for osteomyelitis Blood Cx: negative Imp: 52 year old DM M cellulitis R foot, ?abscess 1. Informed consent obtained. Bedside debridement, I&D of skin slough to right foot performed with sterile scissors and forceps. No deep space infection noted. Patient tolerated procedure well. 2. CT scan ordered. Would benefit more from MRI +/- contrast to evaluate for abscess/osteomyelitis. 3. Can take off NPO. Will need further imaging to determine if patient needs operative management. 4. IV abx per ID. 5. Local wound care. 6. Will follow. Thank you for the courtesy of this consultation. Venkatesh Glass DPM
[2018-05-19 08:00] LABS: BASO % 0.4 % (0-2.0); EOS % 2.2 % (0-4.5); HEMATOCRIT 35.6 % (35.4-49); HEMOGLOBIN 11.8 GM/dL (11.7-16.9); LYMPH % 19.4 % (8-40); MCH 28.6 pg (25.7-33.7); MEAN CELL VOLUME 86.6 fl (80-96); MEAN PLT VOLUME 8.2 fl (7.5-11.1); MONO % 12.2 % (3.8-10.2); NEUT % 65.8 % (42.8-82.8); PLATELET COUNT 203 K/MM3 (134-434); RBC 4.11 M/mm3 (4.00-5.60); RDW 13.3 % (11.9-15.9); WHITE BLOOD COUNT 9.4 K/mm3 (4.0-10.0)
[2018-05-19] MEDS: TAMSULOSIN HCL 0.4 MG CAP PO SCH (08:36)
[2018-05-19] MEDS: SODIUM CHLORIDE 1,000 ML IV SCH ×2 (08:36→16:51)
[2018-05-19 08:49] LABS: ALBUMIN 3.7 g/dl (3.4-5.0); ALK PHOS 68 U/L (45-117); ANION GAP 8 MMOL/L (8-16); BILIRUBIN,TOTAL 0.3 mg/dL (0.2-1); BLOOD UREA NITROGEN 15 mg/dL (7-18); CALCIUM 9.2 mg/dL (8.5-10.1); CHLORIDE 106 mmol/L (98-107); CO2 26 mmol/L (21-32); CREATININE 1.3 mg/dL (0.55-1.3); GLUCOSE,RANDOM 78 mg/dL (74-106); MAGNESIUM 2.2 mg/dL (1.8-2.4); PHOSPHOROUS 3.6 mg/dL (2.5-4.9); POTASSIUM 4.1 mmol/L (3.5-5.1); SGOT/AST 14 U/L (15-37); SGPT/ALT 20 U/L (13-61); SODIUM 140 mmol/L (136-145); TOT PROT 7.7 g/dl (6.4-8.2)
--- NOTE | 2018-05-19 08:56 | PN ---
Physical Exam: SUBJECTIVE: Patient seen and examined at bedside. Complains of mild pain. No other complaints. Denies chest pain, SOB, nausea, vomiting, diarrhea, fevers, chills. OBJECTIVE: Vital Signs Period Temp Pulse Resp BP Sys/Ruffin Pulse Ox Last 24 Hr 98.2 F-98.7 F 78-101 17-20 124-131/78-88 98-99 GENERAL: A&Ox3, no acute distress EYES: PERRLA, EOMI ENT: Moist mucus membranes NECK: No JVD LUNGS: CTA, no wheezes HEART: RRR, no murmurs ABDOMEN: Soft, nontender, BS present MUSCULOSKELETAL: No CVA Tenderness EXTREMITIES: 2+ pulses, RLE wrapped in gauze from earlier bedside procedure NEUROLOGICAL: Cranial nerves II-XII intact. Laboratory Results - last 24 hr 05/18/18 05/18/18 05/18/18 09:15 09:15 09:15 WBC 13.8 H RBC 4.24 Hgb 12.0 Hct 36.4 MCV 85.9 MCH 28.2 MCHC 32.9 RDW 13.2 Plt Count 207 MPV 7.8 Absolute Neuts (auto) 9.8 H Neutrophils % 71.2 Lymphocytes % 14.4 D Monocytes % 12.6 H Eosinophils % 1.1 Basophils % 0.7 Nucleated RBC % 0 PT with INR 13.60 H INR 1.15 H Sodium 137 Potassium 4.2 Chloride 102 Carbon Dioxide 25 Anion Gap 10 BUN 18 Creatinine 1.3 Creat Clearance w eGFR 57.53 POC Glucometer Random Glucose 120 H Calcium 9.1 Phosphorus Magnesium Total Bilirubin AST ALT Alkaline Phosphatase Total Protein Albumin 05/18/18 05/18/18 05/19/18 16:47 23:21 06:05 WBC RBC Hgb Hct MCV MCH MCHC RDW Plt Count MPV Absolute Neuts (auto) Neutrophils % Lymphocytes % Monocytes % Eosinophils % Basophils % Nucleated RBC % PT with INR INR Sodium Potassium Chloride Carbon Dioxide Anion Gap BUN Creatinine Creat Clearance w eGFR POC Glucometer 167 250 156 Random Glucose Calcium Phosphorus Magnesium Total Bilirubin AST ALT Alkaline Phosphatase Total Protein Albumin 05/19/18 05/19/18 07:24 07:24 WBC 9.4 RBC 4.11 Hgb 11.8 Hct 35.6 MCV 86.6 MCH 28.6 MCHC 33.0 RDW 13.3 Plt Count 203 MPV 8.2 Absolute Neuts (auto) 6.2 Neutrophils % 65.8 Lymphocytes % 19.4 D Monocytes % 12.2 H Eosinophils % 2.2 D Basophils % 0.4 Nucleated RBC % 0 PT with INR INR Sodium 140 Potassium 4.1 Chloride 106 Carbon Dioxide 26 Anion Gap 8 BUN 15 Creatinine 1.3 Creat Clearance w eGFR 57.53 POC Glucometer Random Glucose 78 Calcium 9.2 Phosphorus 3.6 Magnesium 2.2 Total Bilirubin 0.3 AST 14 L ALT 20 Alkaline Phosphatase 68 Total Protein 7.7 Albumin 3.7 Active Medications Generic Name Dose Route Start Last Admin Trade Name Freq PRN Reason Stop Dose Admin Acetaminophen 650 mg 05/18/18 08:11 05/18/18 23:27 Tylenol - PO 650 mg Q4H PRN Administration Fever Or Pain 1-6 Atorvastatin Calcium 20 mg 05/18/18 22:00 05/18/18 23:25 Lipitor - PO 20 mg HS [facility] Administration Heparin Sodium (Porcine) 5,000 unit 05/18/18 06:00 05/19/18 06:07 Heparin - SQ 5,000 unit TID [facility] Administration Sodium Chloride 1,000 mls @ 100 mls/hr 05/18/18 09:00 05/19/18 08:36 Normal Saline - IV 100 mls/hr ASDIR [facility] Administration Vancomycin HCl 1,000 mg/ 250 mls @ 166.667 mls/hr 05/18/18 17:15 05/19/18 05: 24 Dextrose IVPB 166.667 mls/hr Q12H [facility] Administration Protocol Piperacillin Sod/Tazobactam 50 mls @ 100 mls/hr 05/18/18 18:00 05/19/18 02:59 Sod 3.375 gm/ Dextrose IVPB 100 mls/hr Q8H-IV [facility] Administration Protocol Insulin Aspart 1 vial 05/18/18 07:00 05/19/18 06:07 Novolog Vial Sliding Scale - SQ 2 units ACHS [facility] Administration Protocol Insulin Detemir 20 units 05/18/18 22:00 05/18/18 23:23 Levemir Vial SQ 20 units HS [facility] Administration Lisinopril 2.5 mg 05/18/18 10:00 05/18/18 11:33 Prinivil PO 2.5 mg DAILY [facility] Administration Sodium Hypochlorite 1 applic 09/29/18 10:00 Dakin's Solution 0.25% (Half-Strength) - TP DAILY [facility] Tamsulosin HCl 0.4 mg 05/18/18 08:30 05/19/18 08:36 Flomax - PO 0.4 mg DAILY@0830 [facility] Administration ASSESSMENT/PLAN: Patient is a 52 year old male with past medical history of DM and hyperlipidemia , presented with new, multiple non-healing wound ulcers on his right foot. #Multiple non-healing wound ulcer, right foot: r/o osteomyelitis -1 L bolus -Foot xray, right - no gross bone destruction or soft tissue air identified. -MRI pending -Blood and wound cultures pending. -ID (Dr. Guzman) consulted. Recommendations appreciated. -continue vanc/zosyn -Wound culture pending; c/s MRSA/Pseudomonas -Podiatry (Dr. Glass) performed bedside debridement, no deep space infection noted. CT lower extremity ordered, pending. -Vascular (Dr. Escalante) consulted -No vascular interventions at this time. -wound care -Tylenol 650mg PRN for pain. #DM: controlled. -continue home med Levemir 20U SQ -ISS -resume home med Lisinopril 2.5 mg PO QD as pt states he takes specifically for renal protection -BGMs ACHS #BPH -continue home med Tamsulosin 0.4 mg PO QD #HLD -continue home med Atorvastatin 20 mg PO HS #FEN -not on any standing fluids -encourage increased oral fluid intake -electrolytes wnl, routine bmp monitoring -Diabetic diet #Prophylaxis -Lovenox 40 mg SQ QD #Disposition -monitor on med/surg Visit type - Emergency Visit Emergency Visit: No - New Patient This patient is new to me today: No - Critical Care Critical Care patient: No - Discharge Referral Referred to [facility] Med [facility].C[facility] No
--- NOTE | 2018-05-19 10:08 | PN ---
Teaching Attending Note Name of Resident: Patel Coronado ATTENDING PHYSICIAN STATEMENT I saw and evaluated the patient. I reviewed the resident's note and discussed the case with the resident. I agree with the resident's findings and plan as documented with exceptions below. SUBJECTIVE: Patient seen and examined. s/p debridement this Am with poditary, some right foot pain but controlled, voiding well, no abdominal or urinary concerns. OBJECTIVE: Vital Signs Period Temp Pulse Resp BP Sys/Ruffin Pulse Ox Last 24 Hr 98.2 F-98.7 F 78-101 17-20 123-131/78-88 98-99 Intake & Output 05/16/18 05/17/18 05/18/18 05/19/18 23:59 23:59 23:59 23:59 Intake Total 300 1250 Output Total 600 Balance -300 1250 Weight 189 lb 198 lb General: ambulating in room, no acute distress Chest; CTAB, no rales or wheezing Abdomen: soft, NT, ND, positive bowel sounds Extremities: right foot dressing, visible toe with ulcer with erythematous base , further exam deferred as just dressed by podiatry Active Medications Acetaminophen (Tylenol -) 650 mg PO Q4H PRN PRN Reason: Fever Or Pain 1-6 Last Admin: 05/18/18 23:27 Dose: 650 mg Atorvastatin Calcium (Lipitor -) 20 mg PO HS [facility] Last Admin: 05/18/18 23:25 Dose: 20 mg Heparin Sodium (Porcine) (Heparin -) 5,000 unit SQ TID [facility] Last Admin: 05/19/18 06:07 Dose: 5,000 unit Sodium Chloride (Normal Saline -) 1,000 mls @ 100 mls/hr IV ASDIR [facility] Last Admin: 05/19/18 08:36 Dose: 100 mls/hr Vancomycin HCl 1,000 mg/ (Dextrose) 250 mls @ 166.667 mls/hr IVPB Q12H [facility]; Protocol Last Admin: 05/19/18 05:24 Dose: 166.667 mls/hr Piperacillin Sod/Tazobactam (Sod 3.375 gm/ Dextrose) 50 mls @ 100 mls/hr IVPB Q8H-IV [facility]; Protocol Last Admin: 05/19/18 02:59 Dose: 100 mls/hr Insulin Aspart (Novolog Vial Sliding Scale -) 1 vial SQ ACHS [facility]; Protocol Last Admin: 05/19/18 06:07 Dose: 2 units Insulin Detemir (Levemir Vial) 20 units SQ HS [facility] Last Admin: 05/18/18 23:23 Dose: 20 units Lisinopril (Prinivil) 2.5 mg PO DAILY [facility] Last Admin: 05/18/18 11:33 Dose: 2.5 mg Sodium Hypochlorite (Dakin's Solution 0.25% (Half-Strength) -) 1 applic TP DAILY [facility] Tamsulosin HCl (Flomax -) 0.4 mg PO DAILY@0830 [facility] Last Admin: 05/19/18 08:36 Dose: 0.4 mg Laboratory Results - last 24 hr 05/18/18 05/18/18 05/18/18 09:15 16:47 23:21 WBC RBC Hgb Hct MCV MCH MCHC RDW Plt Count MPV Absolute Neuts (auto) Neutrophils % Lymphocytes % Monocytes % Eosinophils % Basophils % Nucleated RBC % PT with INR 13.60 H INR 1.15 H Sodium Potassium Chloride Carbon Dioxide Anion Gap BUN Creatinine Creat Clearance w eGFR POC Glucometer 167 250 Random Glucose Calcium Phosphorus Magnesium Total Bilirubin AST ALT Alkaline Phosphatase Total Protein Albumin 05/19/18 05/19/18 05/19/18 06:05 07:24 07:24 WBC 9.4 RBC 4.11 Hgb 11.8 Hct 35.6 MCV 86.6 MCH 28.6 MCHC 33.0 RDW 13.3 Plt Count 203 MPV 8.2 Absolute Neuts (auto) 6.2 Neutrophils % 65.8 Lymphocytes % 19.4 D Monocytes % 12.2 H Eosinophils % 2.2 D Basophils % 0.4 Nucleated RBC % 0 PT with INR INR Sodium 140 Potassium 4.1 Chloride 106 Carbon Dioxide 26 Anion Gap 8 BUN 15 Creatinine 1.3 Creat Clearance w eGFR 57.53 POC Glucometer 156 Random Glucose 78 Calcium 9.2 Phosphorus 3.6 Magnesium 2.2 Total Bilirubin 0.3 AST 14 L ALT 20 Alkaline Phosphatase 68 Total Protein 7.7 Albumin 3.7 Microbiology 05/17/18 18:45 Blood - Peripheral Venous Blood Culture - Preliminary NO GROWTH OBTAINED AFTER 24 HOURS, INCUBATION TO CONTINUE FOR 4 DAYS. 05/17/18 18:45 Blood - Peripheral Venous Blood Culture - Preliminary NO GROWTH OBTAINED AFTER 24 HOURS, INCUBATION TO CONTINUE FOR 4 DAYS. ASSESSMENT AND PLAN: 52 yom with RLE diabetic foot ulcer with cellulitis/sepsis, DARIEL -RLE foot ulcer with cellulitis/early sepsis -DARIEL, likely hypovolumia/sepsis -IDDM -HTN -HLD Plan: ID input noted. Prior wound cx with MRSA/Pseudomonas. Zosyn/vanco day 2. Repeat wound cx. Follow up blood cx. Podiatry/vascular surgery input noted. s/p bedside debridement today. CT/MRI RLE. Renal function stable. Continue IVF/lisinopril with monitoring. Aggressive hydration with contrast study. Levemir 20 units daily, ISS, diabetic diet. DVTPPX heparin Dispo pending clinical improvement. Plan discussed with patient in detail, all questions answered.
[2018-05-19] MEDS ORDERED: SODIUM CHLORIDE 1,000 ML IV STA (10:10)
[2018-05-19] MEDS: LISINOPRIL 5 MG TABLET (FP) PO SCH (11:23)
[2018-05-19] MEDS: SODIUM HYPOCHLORITE 0.25%- 473 ML BULK BOTTLE TP SCH (12:32)
[2018-05-19] MEDS ORDERED: INSULIN (NOVOLOG) ASPART 100 UNITS/ML 10ML VIAL ONE ×2 (16:46→21:34)
[2018-05-19] MEDS: INSULIN (LEVEMIR) 100 UNITS/ML UNITS SQ SCH (21:32)
[2018-05-19] MEDS: ATORVASTATIN CA 20 MG TABLET (FP) PO SCH (21:32)
--- NOTE | 2018-05-19 23:15 | EKG ---
Test Reason : Blood Pressure : / mmHG Vent. Rate : 089 BPM Atrial Rate : 089 BPM P-R Int : 178 ms QRS Dur : 092 ms QT Int : 344 ms P-R-T Axes : 033 012 024 degrees QTc Int : 418 ms NORMAL SINUS RHYTHM NORMAL ECG NO PREVIOUS ECGS AVAILABLE Confirmed by CAR CAVANAUGH MD ([id number]) on 05/19/2018 11:15:20 PM Referred By: Confirmed By:CAR CAVANAUGH MD
[2018-05-20] MEDS ORDERED: DEXTROSE 5%-WATER - 50 ML IVPB ONE ×3 (01:47→16:06)
[2018-05-20] MEDS ORDERED: PIPERACILLIN/TAZOBACTAM 3.375 GM VIAL IVPB ONE ×3 (01:47→16:06)
[2018-05-20] MEDS: PIPERACILLIN/TAZOB 3.375 GM 3.375 GM in DEXTROSE 5%-WATER - 50 ML IVPB SCH ×3 (01:58→18:43)
[2018-05-20] MEDS: VANCOMYCIN 1,000 MG in DEXTROSE 5%-WATER - 250 ML IVPB SCH ×2 (05:25→17:21)
[2018-05-20] MEDS: HEPARIN NA (PORCINE) 5,000 UNITS/ML 1ML VIAL SQ SCH ×3 (05:25→21:07)
[2018-05-20] MEDS: INSULIN SLIDING SCALE (NOVOLOG) 1 VIAL SQ SCH ×4 (06:04→21:07)
[2018-05-20] MEDS: TAMSULOSIN HCL 0.4 MG CAP PO SCH (09:39)
[2018-05-20] MEDS: SODIUM CHLORIDE 1,000 ML IV SCH (09:42)
[2018-05-20] MEDS: LISINOPRIL 5 MG TABLET (FP) PO SCH (09:51)
[2018-05-20] MEDS: SODIUM HYPOCHLORITE 0.25%- 473 ML BULK BOTTLE TP SCH (09:53)
[2018-05-20] MEDS ORDERED: INSULIN (NOVOLOG) ASPART 100 UNITS/ML 10ML VIAL ONE ×2 (11:18→21:02)
[2018-05-20 12:36] LABS: ANION GAP 8 MMOL/L (8-16); BLOOD UREA NITROGEN 13 mg/dL (7-18); CALCIUM 9.7 mg/dL (8.5-10.1); CHLORIDE 105 mmol/L (98-107); CO2 26 mmol/L (21-32); CREATININE 1.2 mg/dL (0.55-1.3); GLUCOSE,RANDOM 139 mg/dL (74-106); MAGNESIUM 2.2 mg/dL (1.8-2.4); PHOSPHOROUS 3.8 mg/dL (2.5-4.9); POTASSIUM 4.4 mmol/L (3.5-5.1); SODIUM 139 mmol/L (136-145)
[2018-05-20] MEDS ORDERED: PT OWN MED DRAWER 7, Y5N ONE (16:06)
[2018-05-20] MEDS ORDERED: INSULIN (LEVEMIR) 100 UNITS/ML UNITS SQ SCH (17:33)
--- NOTE | 2018-05-20 17:42 | PN ---
Physical Exam: SUBJECTIVE: Patient seen and examined, right foot symptoms improved, no new concerns. OBJECTIVE: Vital Signs Period Temp Pulse Resp BP Sys/Ruffin Pulse Ox Last 24 Hr 98.5 F-98.7 F 76-94 20-20 113-122/62-80 98-98 GENERAL: The patient is awake, alert, and fully oriented, in no acute distress. HEAD: Normal with no signs of trauma. EYES: PERRL, extraocular movements intact, sclera anicteric, conjunctiva clear. No ptosis. ENT: Ears normal, nares patent, oropharynx clear without exudates, moist mucous membranes. NECK: Trachea midline, full range of motion, supple. LUNGS: Breath sounds equal, clear to auscultation bilaterally, no wheezes, no crackles, no accessory muscle use. HEART: Regular rate and rhythm, S1, S2 without murmur, rub or gallop. ABDOMEN: Soft, nontender, nondistended, normoactive bowel sounds, no guarding, no rebound, no hepatosplenomegaly, no masses. EXTREMITIES: 2+ pulses, warm, well-perfused, no edema. NEUROLOGICAL: Cranial nerves II through XII grossly intact. Normal speech, gait not observed. PSYCH: Normal mood, normal affect. SKIN: Warm, dry, normal turgor, no rashes or lesions noted Laboratory Results - last 24 hr 05/19/18 05/20/18 05/20/18 21:28 05:59 07:13 Sodium Potassium Chloride Carbon Dioxide Anion Gap BUN Creatinine Creat Clearance w eGFR POC Glucometer 203 152 Random Glucose Hemoglobin A1c % 8.4 H Calcium Phosphorus Magnesium Vancomycin Pre-Dose 05/20/18 05/20/18 05/20/18 11:00 11:33 13:37 Sodium 139 Potassium 4.4 Chloride 105 Carbon Dioxide 26 Anion Gap 8 BUN 13 Creatinine 1.2 Creat Clearance w eGFR > 60 POC Glucometer 232 Random Glucose 139 H Hemoglobin A1c % Calcium 9.7 Phosphorus 3.8 Magnesium 2.2 Vancomycin Pre-Dose 13.9 L 05/20/18 16:18 Sodium Potassium Chloride Carbon Dioxide Anion Gap BUN Creatinine Creat Clearance w eGFR POC Glucometer 276 Random Glucose Hemoglobin A1c % Calcium Phosphorus Magnesium Vancomycin Pre-Dose Active Medications Generic Name Dose Route Start Last Admin Trade Name Freq PRN Reason Stop Dose Admin Acetaminophen 650 mg 05/18/18 08:11 05/18/18 23:27 Tylenol - PO 650 mg Q4H PRN Administration Fever Or Pain 1-6 Atorvastatin Calcium 20 mg 05/18/18 22:00 05/19/18 21:32 Lipitor - PO 20 mg HS [facility] Administration Heparin Sodium (Porcine) 5,000 unit 05/18/18 06:00 05/20/18 14:41 Heparin - SQ 5,000 unit TID [facility] Administration Sodium Chloride 1,000 mls @ 100 mls/hr 05/18/18 09:00 05/20/18 09:42 Normal Saline - IV 100 mls/hr ASDIR [facility] Administration Vancomycin HCl 1,000 mg/ 250 mls @ 166.667 mls/hr 05/18/18 17:15 05/20/18 17: 21 Dextrose IVPB 166.667 mls/hr Q12H [facility] Administration Protocol Piperacillin Sod/Tazobactam 50 mls @ 100 mls/hr 05/18/18 18:00 05/20/18 09:51 Sod 3.375 gm/ Dextrose IVPB 100 mls/hr Q8H-IV [facility] Administration Protocol Insulin Aspart 1 vial 05/18/18 07:00 05/20/18 16:19 Novolog Vial Sliding Scale - SQ 6 units ACHS [facility] Administration Protocol Insulin Detemir 20 units 05/21/18 10:00 Levemir Vial SQ DAILY [facility] Insulin Detemir 10 units 05/20/18 17:33 Levemir Vial SQ HS [facility] Lisinopril 2.5 mg 05/18/18 10:00 05/20/18 09:51 Prinivil PO 2.5 mg DAILY [facility] Administration Sodium Hypochlorite 1 applic 05/19/18 10:00 05/20/18 09:53 Dakin's Solution 0.25% (Half-Strength) - TP 1 applic DAILY [facility] Administration Tamsulosin HCl 0.4 mg 05/18/18 08:30 05/20/18 09:39 Flomax - PO 0.4 mg DAILY@0830 [facility] Administration Microbiology 05/18/18 18:00 Foot - Right Gram Stain - Final 05/18/18 18:00 Foot - Right Wound Culture - Preliminary Presumptive Mrsa (Pbp2a Pos) 05/17/18 18:45 Blood - Peripheral Venous Blood Culture - Preliminary NO GROWTH OBTAINED AFTER 48 HOURS, INCUBATION TO CONTINUE FOR 3 DAYS. 05/17/18 18:45 Blood - Peripheral Venous Blood Culture - Preliminary NO GROWTH OBTAINED AFTER 48 HOURS, INCUBATION TO CONTINUE FOR 3 DAYS. ASSESSMENT/PLAN: 52 yom with RLE diabetic foot ulcer with cellulitis/sepsis, DARIEL -RLE foot ulcer with cellulitis/early sepsis -DARIEL, likely hypovolumia/sepsis -IDDM -HTN -HLD Plan: Wound cx with MRSA MRI/CT neg for osteo or abscess Discussed with DR. Glass, no additional intervention. FOllow up with ID for abx and possible d/c in 24 hours with outpatient follow up with wound center. Feet hygeine and scheduled podiatry follow up, blood glucose control discussed in detail, with patient and and he relays understanding. ID input noted. Prior wound cx with MRSA/Pseudomonas. Zosyn/vanco day 3. Resume home levemir regimen 20 units AM and 5-10 units at night. DVTPPX heparin Dispo d/c in 24 hours pending ID input if no new concerns Plan discussed with patient and in detail, all questions answered. Visit type - Emergency Visit Emergency Visit: Yes ED Registration Date: 05/18/18 Care time: The patient presented to the Emergency Department on the above date and was hospitalized for further evaluation of their emergent condition. - New Patient This patient is new to me today: No - Critical Care Critical Care patient: No - Discharge Referral Referred to [facility] Med P.C.: No
[2018-05-20] MEDS: ATORVASTATIN CA 20 MG TABLET (FP) PO SCH (21:07)
[2018-05-21] MEDS ORDERED: DEXTROSE 5%-WATER - 50 ML IVPB ONE ×3 (01:57→18:18)
[2018-05-21] MEDS ORDERED: PIPERACILLIN/TAZOBACTAM 3.375 GM VIAL IVPB ONE ×3 (01:57→18:18)
[2018-05-21] MEDS: SODIUM CHLORIDE 1,000 ML IV SCH ×3 (02:05→15:55)
[2018-05-21] MEDS: PIPERACILLIN/TAZOB 3.375 GM 3.375 GM in DEXTROSE 5%-WATER - 50 ML IVPB SCH ×3 (02:05→18:21)
[2018-05-21] MEDS: VANCOMYCIN 1,000 MG in DEXTROSE 5%-WATER - 250 ML IVPB SCH ×2 (05:33→16:30)
[2018-05-21] MEDS: HEPARIN NA (PORCINE) 5,000 UNITS/ML 1ML VIAL SQ SCH ×3 (06:07→21:58)
[2018-05-21] MEDS: INSULIN SLIDING SCALE (NOVOLOG) 1 VIAL SQ SCH ×4 (06:09→21:57)
[2018-05-21] MEDS ORDERED: INSULIN (NOVOLOG) ASPART 100 UNITS/ML 10ML VIAL ONE (06:30)
[2018-05-21] MEDS ORDERED: INSULIN (LEVEMIR) 100 UNITS/ML UNITS SQ SCH (07:00)
[2018-05-21] MEDS: TAMSULOSIN HCL 0.4 MG CAP PO SCH (09:14)
[2018-05-21] MEDS: LISINOPRIL 5 MG TABLET (FP) PO SCH (09:14)
[2018-05-21 10:50] LABS: HEMATOCRIT 35.5 % (35.4-49); HEMOGLOBIN 11.6 GM/dL (11.7-16.9); MCH 28.3 pg (25.7-33.7); MCHC 32.7 g/dl (32.0-35.9); MEAN CELL VOLUME 86.6 fl (80-96); MEAN PLT VOLUME 7.8 fl (7.5-11.1); PLATELET COUNT 229 K/MM3 (134-434); RBC 4.11 M/mm3 (4.00-5.60); RDW 13.2 % (11.9-15.9); WHITE BLOOD COUNT 6.2 K/mm3 (4.0-10.0)
[2018-05-21 11:23] LABS: ANION GAP 10 MMOL/L (8-16); BLOOD UREA NITROGEN 14 mg/dL (7-18); CALCIUM 9.6 mg/dL (8.5-10.1); CHLORIDE 101 mmol/L (98-107); CO2 27 mmol/L (21-32); CREATININE 1.3 mg/dL (0.55-1.3); POTASSIUM 4.1 mmol/L (3.5-5.1); SODIUM 137 mmol/L (136-145)
--- NOTE | 2018-05-21 11:31 | PN ---
Progress Note, Physician History of Present Illness: Reports less foot pain No fever Tolerating antibiotics WBC 9.4 Wound c/s MRSA + GNR MRI negative for osteomyelitis - Current Medication List Current Medications: Active Medications Acetaminophen (Tylenol -) 650 mg PO Q4H PRN PRN Reason: Fever Or Pain 1-6 Last Admin: 05/18/18 23:27 Dose: 650 mg Atorvastatin Calcium (Lipitor -) 20 mg PO HS [facility] Last Admin: 05/20/18 21:07 Dose: 20 mg Heparin Sodium (Porcine) (Heparin -) 5,000 unit SQ TID [facility] Last Admin: 05/21/18 06:07 Dose: 5,000 unit Vancomycin HCl 1,000 mg/ (Dextrose) 250 mls @ 166.667 mls/hr IVPB Q12H [facility]; Protocol Last Admin: 05/21/18 05:33 Dose: 166.667 mls/hr Piperacillin Sod/Tazobactam (Sod 3.375 gm/ Dextrose) 50 mls @ 100 mls/hr IVPB Q8H-IV [facility]; Protocol Last Admin: 05/21/18 09:14 Dose: 100 mls/hr Insulin Aspart (Novolog Vial Sliding Scale -) 1 vial SQ ACHS [facility]; Protocol Last Admin: 05/21/18 06:09 Dose: 2 units Insulin Detemir (Levemir Vial) 20 units SQ AM [facility] Last Admin: 05/21/18 06:07 Dose: 20 units Insulin Detemir (Levemir Vial) 10 units SQ HS [facility] Last Admin: 05/20/18 21:06 Dose: 10 units Lisinopril (Prinivil) 2.5 mg PO DAILY [facility] Last Admin: 05/21/18 09:14 Dose: 2.5 mg Sodium Hypochlorite (Dakin's Solution 0.25% (Half-Strength) -) 1 applic TP DAILY [facility] Last Admin: 05/20/18 09:53 Dose: 1 applic Tamsulosin HCl (Flomax -) 0.4 mg PO DAILY@0830 [facility] Last Admin: 05/21/18 09:14 Dose: 0.4 mg - Objective Vital Signs: Vital Signs Temperature 98.1 F 05/21/18 06:00 Pulse Rate 76 05/21/18 06:00 Respiratory Rate 20 05/21/18 00:00 Blood Pressure 115/79 05/21/18 06:00 O2 Sat by Pulse Oximetry (%) 98 05/20/18 21:00 Constitutional: Yes: No Distress Eyes: Yes: Conjunctiva Clear Cardiovascular: Yes: Regular Rate and Rhythm, S1, S2 Respiratory: Yes: CTA Bilaterally Gastrointestinal: Yes: Normal Bowel Sounds, Soft. No: Tenderness Extremities: Yes: Other (R 2nd toe erythema resolved 3rd toe remains erythematous with drainage) Labs: CBC, BMP 05/21/18 10:31 05/21/18 10:31 INR, PTT INR 1.15 (0.83-1.09) H 05/18/18 09:15 Assessment/Plan Cellulitis/infected ulcer R foot + Wound c/s MRSA Continue vancomycin/ zosyn
[2018-05-21] MEDS: SODIUM HYPOCHLORITE 0.25%- 473 ML BULK BOTTLE TP SCH (11:44)
[2018-05-21 12:12] LABS: GLUCOSE,RANDOM 303 mg/dL (74-106)
--- NOTE | 2018-05-21 15:04 | PN ---
Teaching Attending Note Name of Resident: Amisha Resendiz ATTENDING PHYSICIAN STATEMENT I saw and evaluated the patient. I reviewed the resident's note and discussed the case with the resident. I agree with the resident's findings and plan as documented with exceptions below. SUBJECTIVE: Patient seen and examined. right foot symptoms continue to improved. No new complaints. OBJECTIVE: Vital Signs Period Temp Pulse Resp BP Sys/Ruffin Pulse Ox Last 24 Hr 98.0 F-98.4 F 76-88 20-21 112-121/66-80 98 Intake & Output 05/18/18 05/19/18 05/20/18 05/21/18 23:59 23:59 23:59 23:59 Intake Total 300 3000 2550 1600 Output Total 600 Balance -300 3000 2550 1600 Weight 198 lb General: sitting in bed in no acute distress Extremities: right foot with some drainage in intertriginous region, surrounding erythema with clean base, pos DP pulses Active Medications Acetaminophen (Tylenol -) 650 mg PO Q4H PRN PRN Reason: Fever Or Pain 1-6 Last Admin: 05/18/18 23:27 Dose: 650 mg Atorvastatin Calcium (Lipitor -) 20 mg PO HS [facility] Last Admin: 05/20/18 21:07 Dose: 20 mg Heparin Sodium (Porcine) (Heparin -) 5,000 unit SQ TID [facility] Last Admin: 05/21/18 06:07 Dose: 5,000 unit Vancomycin HCl 1,000 mg/ (Dextrose) 250 mls @ 166.667 mls/hr IVPB Q12H [facility]; Protocol Last Admin: 05/21/18 05:33 Dose: 166.667 mls/hr Piperacillin Sod/Tazobactam (Sod 3.375 gm/ Dextrose) 50 mls @ 100 mls/hr IVPB Q8H-IV [facility]; Protocol Last Admin: 05/21/18 09:14 Dose: 100 mls/hr Sodium Chloride (Normal Saline -) 1,000 mls @ 75 mls/hr IV ASDIR [facility] Insulin Aspart (Novolog Vial Sliding Scale -) 1 vial SQ ACHS [facility]; Protocol Last Admin: 05/21/18 11:44 Dose: 6 units Insulin Detemir (Levemir Vial) 20 units SQ BID [facility] Lisinopril (Prinivil) 2.5 mg PO DAILY [facility] Last Admin: 05/21/18 09:14 Dose: 2.5 mg Sodium Hypochlorite (Dakin's Solution 0.25% (Half-Strength) -) 1 applic TP DAILY [facility] Last Admin: 05/21/18 11:44 Dose: 1 applic Tamsulosin HCl (Flomax -) 0.4 mg PO DAILY@0830 [facility] Last Admin: 05/21/18 09:14 Dose: 0.4 mg Microbiology 05/18/18 18:00 Foot - Right Gram Stain - Final 05/18/18 18:00 Foot - Right Wound Culture - Preliminary Mr S Aureus Non Lactose Fermenting Gnb 05/17/18 18:45 Blood - Peripheral Venous Blood Culture - Preliminary NO GROWTH OBTAINED AFTER 72 HOURS, INCUBATION TO CONTINUE FOR 2 DAYS. 05/17/18 18:45 Blood - Peripheral Venous Blood Culture - Preliminary NO GROWTH OBTAINED AFTER 72 HOURS, INCUBATION TO CONTINUE FOR 2 DAYS. ASSESSMENT AND PLAN: 52 yom with RLE diabetic foot ulcer with cellulitis/sepsis, DARIEL -RLE foot ulcer with cellulitis/early sepsis -DARIEL, likely hypovolumia/sepsis -IDDM -HTN -HLD Plan: Wound cx noted MRI/CT neg for osteo/abscess Wound with some drainage. Discussed with Dr. Guzman, continue zosyn/vancomycin for now. Discussed with Dr. Glass, possible repeat debridement. Renal function noted, continue gentle hydration Increase levemir to 20 units BID Feet hygeine and scheduled podiatry follow up, blood glucose control discussed in detail, with patient and and he relays understanding. Resume home levemir regimen 20 units AM and 5-10 units at night. DVTPPX heparin Dispo d/c in 1-2 days pending ID input and repeat debridement. Plan discussed with patient in detail, all questions answered.
--- NOTE | 2018-05-21 19:59 | PN ---
Physical Exam: SUBJECTIVE: Patient seen and examined at bedside this morning. No acute events overnight. Patient has no new complaints. OBJECTIVE: Vital Signs Period Temp Pulse Resp BP Sys/Ruffin Pulse Ox Last 24 Hr 97.9 F-98.4 F 76-88 18-20 104-122/64-80 98 GENERAL: The patient is awake, alert, and fully oriented, in no acute distress. EYES: PERRLA, EOMI, sclera anicteric, conjunctiva clear. No ptosis. ENT: Ears normal, nares patent, oropharynx clear without exudates, moist mucous membranes. NECK: Trachea midline, full range of motion, supple. LUNGS: Breath sounds equal, clear to auscultation bilaterally, no wheezes, no crackles, no accessory muscle use. HEART: Regular rate and rhythm, S1, S2 without murmur, rub or gallop. ABDOMEN: Soft, nontender, nondistended, normoactive bowel sounds. UPPER EXTREMITIES: 2+ pulses, warm, well-perfused, no edema. LOWER EXTREMITIES: 2+ pulses, warm, well-perfused. No calf tenderness. No peripheral edema. +R foot wound ulcers between web spaces of 2nd, 3rd and 4th toes NEUROLOGICAL: Cranial nerves II through XII grossly intact. Normal speech, gait not observed. PSYCH: Normal mood, normal affect. SKIN: Warm, dry, normal turgor, no rashes or lesions noted Laboratory Results - last 24 hr 05/18/18 05/18/18 05/20/18 12:10 12:12 21:05 WBC RBC Hgb Hct MCV MCH MCHC RDW Plt Count MPV Sodium Potassium Chloride Carbon Dioxide Anion Gap BUN Creatinine Creat Clearance w eGFR POC Glucometer 276.86166 269.74178 262 Random Glucose Calcium 05/21/18 05/21/18 05/21/18 06:06 10:31 10:31 WBC 6.2 RBC 4.11 Hgb 11.6 L Hct 35.5 MCV 86.6 MCH 28.3 MCHC 32.7 RDW 13.2 Plt Count 229 MPV 7.8 Sodium 137 Potassium 4.1 Chloride 101 Carbon Dioxide 27 Anion Gap 10 BUN 14 Creatinine 1.3 Creat Clearance w eGFR 57.53 POC Glucometer 186 Random Glucose 303 H* Calcium 9.6 05/21/18 05/21/18 11:34 16:29 WBC RBC Hgb Hct MCV MCH MCHC RDW Plt Count MPV Sodium Potassium Chloride Carbon Dioxide Anion Gap BUN Creatinine Creat Clearance w eGFR POC Glucometer 286 138 Random Glucose Calcium Active Medications Generic Name Dose Route Start Last Admin Trade Name Chuckie PRN Reason Stop Dose Admin Acetaminophen 650 mg 05/18/18 08:11 05/18/18 23:27 Tylenol - PO 650 mg Q4H PRN Administration Fever Or Pain 1-6 Atorvastatin Calcium 20 mg 05/18/18 22:00 05/20/18 21:07 Lipitor - PO 20 mg HS [facility] Administration Heparin Sodium (Porcine) 5,000 unit 05/18/18 06:00 05/21/18 14:46 Heparin - SQ 5,000 unit TID [facility] Administration Vancomycin HCl 1,000 mg/ 250 mls @ 166.667 mls/hr 05/18/18 17:15 05/21/18 16: 30 Dextrose IVPB 166.667 mls/hr Q12H [facility] Administration Protocol Piperacillin Sod/Tazobactam 50 mls @ 100 mls/hr 05/18/18 18:00 05/21/18 18:21 Sod 3.375 gm/ Dextrose IVPB 100 mls/hr Q8H-IV [facility] Administration Protocol Sodium Chloride 1,000 mls @ 75 mls/hr 05/21/18 15:15 05/21/18 15:55 Normal Saline - IV 75 mls/hr ASDIR [facility] Administration Insulin Aspart 1 vial 05/18/18 07:00 05/21/18 16:30 Novolog Vial Sliding Scale - SQ Not Given ACHS [facility] Protocol Insulin Detemir 20 units 05/21/18 22:00 Levemir Vial SQ BID@0700,2200 [facility] Lisinopril 2.5 mg 05/18/18 10:00 05/21/18 09:14 Prinivil PO 2.5 mg DAILY [facility] Administration Sodium Hypochlorite 1 applic 05/19/18 10:00 05/21/18 11:44 Dakin's Solution 0.25% (Half-Strength) - TP 1 applic DAILY [facility] Administration Tamsulosin HCl 0.4 mg 05/18/18 08:30 05/21/18 09:14 Flomax - PO 0.4 mg DAILY@0830 [facility] Administration ASSESSMENT/PLAN: Patient is a 52 year old male with past medical history of DM and hyperlipidemia , presented with new, multiple non-healing wound ulcers on his right foot. #Multiple non-healing wound ulcer, right foot: -Foot xray, right - no gross bone destruction or soft tissue air identified. -LE MRI w/o contrast- No evidence of osteomyelitis of the metatarsal bones of of the phalanges. Soft tissue swelling dorsal to the foot but predominantly surrounding the distal aspect of the great toes compatible with cellulitis. No large abscess collection identified. -Wound cultures - presumptive MRSA, nonlactose fermenting gram negative bacilli -ID (Dr. Guzman) consulted. Recommendations appreciated. -Continue empiric Vancomycin and Zosyn day 4. -Vancomycin trough 13.9 -Podiatry (Dr. Glass) consulted. Recommendations appreciated. -s/p Debridement at bedside (05/18) -Vascular (Dr. Escalante) consulted. Recommendations appreciated. -No vascular interventions at this time. -appreciate podiatry recommendations. -Apligraf and clean dressing. -Proper wound care -Tylenol 650mg PRN for pain. #DM: controlled. -resume home med Levemir 20U SQ -ISS -resume home med Lisinopril 2.5 mg PO QD as pt states he takes specifically for renal protection -BGMs ACHS #BPH -resume home med Tamsulosin 0.4 mg PO QD #HLD -resume home med Atorvastatin 20 mg PO HS #FEN -not on any standing fluids -encourage increased oral fluid intake -electrolytes wnl, routine bmp monitoring -Diabetic diet #Prophylaxis -Lovenox 40 mg SQ QD #Disposition -admit to med/surg Visit type - Emergency Visit Emergency Visit: Yes ED Registration Date: 05/18/18 Care time: The patient presented to the Emergency Department on the above date and was hospitalized for further evaluation of their emergent condition. - New Patient This patient is new to me today: Yes Date on this admission: 05/22/18 - Critical Care Critical Care patient: No
[2018-05-21] MEDS: ATORVASTATIN CA 20 MG TABLET (FP) PO SCH (21:58)
[2018-05-21] MEDS: INSULIN (LEVEMIR) 100 UNITS/ML UNITS SQ SCH (21:58)
[2018-05-22] MEDS ORDERED: DEXTROSE 5%-WATER - 50 ML IVPB ONE ×2 (03:04→10:48)
[2018-05-22] MEDS ORDERED: PIPERACILLIN/TAZOBACTAM 3.375 GM VIAL IVPB ONE ×2 (03:04→10:48)
[2018-05-22] MEDS ORDERED: PT OWN MED DRAWER 7, Y5N ONE (03:06)
[2018-05-22] MEDS: PIPERACILLIN/TAZOB 3.375 GM 3.375 GM in DEXTROSE 5%-WATER - 50 ML IVPB SCH ×2 (03:07→11:12)
[2018-05-22] MEDS: VANCOMYCIN 1,000 MG in DEXTROSE 5%-WATER - 250 ML IVPB SCH (05:25)
[2018-05-22] MEDS: HEPARIN NA (PORCINE) 5,000 UNITS/ML 1ML VIAL SQ SCH ×2 (05:26→15:04)
[2018-05-22] MEDS: SODIUM CHLORIDE 1,000 ML IV SCH ×3 (05:26→16:11)
[2018-05-22] MEDS: INSULIN (LEVEMIR) 100 UNITS/ML UNITS SQ SCH (06:36)
[2018-05-22] MEDS: INSULIN SLIDING SCALE (NOVOLOG) 1 VIAL SQ SCH ×3 (06:36→17:09)
[2018-05-22] MEDS ORDERED: INSULIN (NOVOLOG) ASPART 100 UNITS/ML 10ML VIAL ONE (06:43)
[2018-05-22 07:21] LABS: BASO % 0.6 % (0-2.0); EOS % 4.2 % (0-4.5); HEMATOCRIT 37.1 % (35.4-49); HEMOGLOBIN 12.1 GM/dL (11.7-16.9); LYMPH % 27.1 % (8-40); MCH 28.2 pg (25.7-33.7); MCHC 32.6 g/dl (32.0-35.9); MEAN CELL VOLUME 86.5 fl (80-96); NEUT % 52.1 % (42.8-82.8); PLATELET COUNT 233 K/MM3 (134-434); RBC 4.29 M/mm3 (4.00-5.60); RDW 13.2 % (11.9-15.9); WHITE BLOOD COUNT 6.9 K/mm3 (4.0-10.0)
[2018-05-22 08:01] LABS: ANION GAP 9 MMOL/L (8-16); BLOOD UREA NITROGEN 18 mg/dL (7-18); CALCIUM 9.6 mg/dL (8.5-10.1); CHLORIDE 105 mmol/L (98-107); CO2 25 mmol/L (21-32); CREATININE 1.3 mg/dL (0.55-1.3); GLUCOSE,RANDOM 186 mg/dL (74-106); POTASSIUM 4.5 mmol/L (3.5-5.1); SODIUM 139 mmol/L (136-145)
[2018-05-22] MEDS: TAMSULOSIN HCL 0.4 MG CAP PO SCH (08:13)
--- NOTE | 2018-05-22 08:42 | PN ---
Progress Note (short form) - Note Progress Note: Podiatry F/U; Seen/evaluated at bedside NAD. Pain much improved, pt feels better. Denies F/V /N/C/SOB/CP. Afebrile VSS. YONATAN: R foot: pedal pulses palpable, TG wnl. Serous blistering plantar aspect of digits 2-5 with underlying granular base, no deep probing, no purulent drainage , no fluctuance, no periwound erythema, improved ascending cellulitis, no soft tissue crepitus, no signs of acute infection. Minimal tenderness to palpation. WBC: 6.9 Wound Cx: MRSA, GNB CT/MRI: negative for osteomyelitis, negative for abscess collection Imp: 52 year old DM M with cellulitis R foot 1. Cellulitis much improved, wounds are granular and stable. Continue abx per ID. 2. Dakins wet to dry to R foot daily. Home nursing services established. 3. Partial WB R foot with surgical shoe. 4. Diabetic control. 5. Upon discharge, patient to f/u with me in wound healing center 05/29/18. [phone]. 6. Podiatry stable for d/c Venkatesh Glass DPM
[2018-05-22] MEDS: SODIUM HYPOCHLORITE 0.25%- 473 ML BULK BOTTLE TP SCH (11:06)
[2018-05-22] MEDS: LISINOPRIL 5 MG TABLET (FP) PO SCH (11:12)
[2018-05-22 12:59] LABS: ACANTHOCYTES 0; ANISOCYTOSIS 0; HELMET CELLS 0; HOWELL-JOLLY BODIES 0; MACROCYTOSIS 0; OVALOCYTE 0; PLATELET ESTIMATE NORMAL; ROULEAU 0; SICKELED CELLS 0; TARGET CELLS 0; TEAR DROP CELLS 0; TOXIC GRANULATION 0
[2018-05-22 14:38] VITALS: BP 111/76; PULSE 93; TEMP 98.4
--- NOTE | 2018-05-22 14:57 | PN ---
Teaching Attending Note Name of Resident: Amisha Resendiz ATTENDING PHYSICIAN STATEMENT I saw and evaluated the patient. I reviewed the resident's note and discussed the case with the resident. I agree with the resident's findings and plan as documented. SUBJECTIVE:asymptomatic. denies CP, SOB, fever, chills, N/V/C/D OBJECTIVE: Last Vital Signs Temp Pulse Resp BP Pulse Ox 98.4 F 93 H 18 111/76 97 05/22/18 14:37 05/22/18 14:37 05/22/18 06:51 05/22/18 14:37 05/21/18 22:00 General NAD Extremities R foot with desquamation of tissue on dorsum of foot beneath the 2- 4th digits and in the interdigit spaces. no drainage noted. no surrounding erthyema or tenderness. ASSESSMENT AND PLAN: 52 yo M with PMH HTN, DM and dyslipidemia presented to the ER with RLE diabetic foot ulcer with cellulitis/sepsis, DARIEL 1. sepsis due to RLE diabetic foot ulcer with surrounding cellulitis- +MRSA. afebrile, no leukocytosis. MRI negative for OM. area looks clean. on Vanco/ zosyn day6. no plans for further intervention per podiatry. will need to d/w ID about abx duration and if will need penitentiary IV abx. 2. DARIEL, likely hypovolumia/sepsis- resolved. 3. DM- controlled. levemir increased yesterday with improvement. cont to titrate to optimize control 4. HTN- controlled 5. dyslipidemia- controlled 6. DVT ppx- hep 7. spoke with patient and present at bedside. 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 would prefer to go home if possible but agreeable to IV abx at home if necessary.
--- NOTE | 2018-05-22 15:22 | PN ---
Progress Note (short form) - Note Progress Note: foot is clean, seen by podiatry earlier this am no drainage Vital Signs Period Temp Pulse Resp BP Sys/Ruffin Pulse Ox Last 24 Hr 97.9 F-98.8 F 79-93 18-20 104-122/64-80 97 dressing removed foot examined toes 2/3/4 with minimal erythema, skin has been debrided, no drainage CBC, BMP 05/22/18 06:00 05/22/18 06:00 Microbiology 05/18/18 18:00 Foot - Right Gram Stain - Final 05/18/18 18:00 Foot - Right Wound Culture - Final S Aureus Stenotrophomon.(X.)Maltophilia 05/17/18 18:45 Blood - Peripheral Venous Blood Culture - Preliminary NO GROWTH OBTAINED AFTER 96 HOURS, INCUBATION TO CONTINUE FOR 1 DAYS. 05/17/18 18:45 Blood - Peripheral Venous Blood Culture - Preliminary NO GROWTH OBTAINED AFTER 96 HOURS, INCUBATION TO CONTINUE FOR 1 DAYS. Current Medications Acetaminophen (Tylenol -) 650 mg PO Q4H PRN PRN Reason: Fever Or Pain 1-6 Last Admin: 05/18/18 23:27 Dose: 650 mg Atorvastatin Calcium (Lipitor -) 20 mg PO HS [facility] Last Admin: 05/21/18 21:58 Dose: 20 mg Heparin Sodium (Porcine) (Heparin -) 5,000 unit SQ TID [facility] Last Admin: 05/22/18 15:04 Dose: 5,000 unit Vancomycin HCl 1,000 mg/ (Dextrose) 250 mls @ 166.667 mls/hr IVPB Q12H [facility]; Protocol Last Admin: 05/22/18 05:25 Dose: 166.667 mls/hr Piperacillin Sod/Tazobactam (Sod 3.375 gm/ Dextrose) 50 mls @ 100 mls/hr IVPB Q8H-IV [facility]; Protocol Last Admin: 05/22/18 11:12 Dose: 100 mls/hr Sodium Chloride (Normal Saline -) 1,000 mls @ 75 mls/hr IV ASDIR [facility] Last Admin: 05/22/18 08:14 Dose: 75 mls/hr Insulin Aspart (Novolog Vial Sliding Scale -) 1 vial SQ ACHS [facility]; Protocol Last Admin: 05/22/18 11:15 Dose: 4 units Insulin Detemir (Levemir Vial) 20 units SQ BID@0700,2200 [facility] Last Admin: 05/22/18 06:36 Dose: 20 units Lisinopril (Prinivil) 2.5 mg PO DAILY [facility] Last Admin: 05/22/18 11:12 Dose: 2.5 mg Sodium Hypochlorite (Dakin's Solution 0.25% (Half-Strength) -) 1 applic TP DAILY [facility] Last Admin: 05/22/18 11:06 Dose: Not Given Tamsulosin HCl (Flomax -) 0.4 mg PO DAILY@0830 [facility] Last Admin: 05/22/18 08:13 Dose: 0.4 mg a/p day #5 antiibotics cellulitis no osteomyelitis by MRI can switch to po clindamycin 300 tid and levaquin 500 daily for 7 days add probiotics for one month elevated creatinine on admission- will avoid bactrim use f/u wound care with podiatry
--- NOTE | 2018-05-22 17:08 | DS ---
Physical Exam: SUBJECTIVE: Patient seen and examined at bedside this morning. No acute events overnight. Patient has no new complaints. OBJECTIVE: Vital Signs Period Temp Pulse Resp BP Sys/Ruffin Pulse Ox Last 24 Hr 98.1 F-98.8 F 79-93 18-20 107-127/72-80 96-97 PHYSICAL EXAM GENERAL: The patient is awake, alert, and fully oriented, in no acute distress. EYES: PERRLA, EOMI, sclera anicteric, conjunctiva clear. No ptosis. ENT: Ears normal, nares patent, oropharynx clear without exudates, moist mucous membranes. NECK: Trachea midline, full range of motion, supple. LUNGS: Breath sounds equal, clear to auscultation bilaterally, no wheezes, no crackles, no accessory muscle use. HEART: Regular rate and rhythm, S1, S2 without murmur, rub or gallop. ABDOMEN: Soft, nontender, nondistended, normoactive bowel sounds. UPPER EXTREMITIES: 2+ pulses, warm, well-perfused, no edema. LOWER EXTREMITIES: 2+ pulses, warm, well-perfused. No calf tenderness. No peripheral edema. +R foot wound ulcers between web spaces of 2nd, 3rd and 4th toes NEUROLOGICAL: Cranial nerves II through XII grossly intact. Normal speech, gait not observed. PSYCH: Normal mood, normal affect. SKIN: Warm, dry, normal turgor, no rashes or lesions noted LABS Laboratory Results - last 24 hr 05/21/18 05/22/18 05/22/18 21:56 06:00 06:00 WBC 6.9 RBC 4.29 Hgb 12.1 Hct 37.1 MCV 86.5 MCH 28.2 MCHC 32.6 RDW 13.2 Plt Count 233 MPV 8.0 Absolute Neuts (auto) 3.6 Neutrophils % 52.1 D Neutrophils % (Manual) 46.4 Band Neutrophils % 0.0 Lymphocytes % 27.1 D Lymphocytes % (Manual) 25.8 Monocytes % 16.0 H Monocytes % (Manual) 18 H Eosinophils % 4.2 D Eosinophils % (Manual) 8.3 H Basophils % 0.6 Basophils % (Manual) 0.0 Myelocytes % (Man) 1 Promyelocytes % (Man) 0 Blast Cells % (Manual) 0 Nucleated RBC % 0 Metamyelocytes 0 Hypochromia 0 Toxic Granulation 0 Dohle Bodies 0 Platelet Estimate Normal Polychromasia 0 Poikilocytosis 0 Basophilic Stippling 0 Anisocytosis 0 Microcytosis 0 Macrocytosis 0 Spherocytes 0 Sickle Cells 0 Target Cells 0 Tear Drop Cells 0 Ovalocytes 0 Stomatocytes 0 Helmet Cells 0 [place] Bodies 0 [place] Rings 0 [place] Cells 0 Acanthocytes (Spur) 0 Rouleaux 0 Fragmented RBCs 0 Schistocytes 0 Sodium 139 Potassium 4.5 Chloride 105 Carbon Dioxide 25 Anion Gap 9 BUN 18 Creatinine 1.3 Creat Clearance w eGFR 57.53 POC Glucometer 269 Random Glucose 186 H Calcium 9.6 05/22/18 05/22/18 06:21 11:15 WBC RBC Hgb Hct MCV MCH MCHC RDW Plt Count MPV Absolute Neuts (auto) Neutrophils % Neutrophils % (Manual) Band Neutrophils % Lymphocytes % Lymphocytes % (Manual) Monocytes % Monocytes % (Manual) Eosinophils % Eosinophils % (Manual) Basophils % Basophils % (Manual) Myelocytes % (Man) Promyelocytes % (Man) Blast Cells % (Manual) Nucleated RBC % Metamyelocytes Hypochromia Toxic Granulation Dohle Bodies Platelet Estimate Polychromasia Poikilocytosis Basophilic Stippling Anisocytosis Microcytosis Macrocytosis Spherocytes Sickle Cells Target Cells Tear Drop Cells Ovalocytes Stomatocytes Helmet Cells [place] Bodies [place] Rings Neptali Cells Acanthocytes (Spur) Rouleaux Fragmented RBCs Schistocytes Sodium Potassium Chloride Carbon Dioxide Anion Gap BUN Creatinine Creat Clearance w eGFR POC Glucometer 190 235 Random Glucose Calcium Imaging: CXR - Unremarkable examination without evidence of acute lung disease. Toe X-ray, right foot - A bandage over the toes is slightly obscuring details. No gross bone destruction or soft tissue air is identified. CT w/o contrast, RLE - No evidence of an abscess. If symptoms persist consider MRI or additional imaging. MRI w/o contrast, RLE - No evidence of osteomyelitis of the metatarsal bones or of the phalanges. Soft tissue swelling dorsal to the foot but predominantly surrounding the distal aspect of the great toe compatible with cellulitis. No large abscess collection identified at this study. HOSPITAL COURSE: Date of Admission:05/18/18 Date of Discharge: 05/22/18 Patient is a 52 year old male with past medical history of DM and hyperlipidemia , presented with new, multiple non-healing wound ulcers on his right foot. Podiatry, Vascular surgery and ID consulted. MRI done ruled out osteomyelitis. Debridement of the wound was done bedside and sent for wound cultures. Patient completed 5 days of Vancomycin and Zosyn for broad coverage pending cultures. 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 Patient was discharged on Levaquin and Clindamycin to complete for 7 days and instructed to follow-up at the wound care center with Dr. Glass. Minutes to complete discharge: 40 Discharge Summary Reason For Visit: INFECTION OF TOE, DIAB FOOT ULCER Current Active Problems Diabetic foot ulcer (Acute) Toe infection (Acute) Diabetes (Chronic) Dyslipidemia (Chronic) HTN (hypertension) (Chronic) Condition: Improved - Instructions Diet, Activity, Other Instructions: You were admitted because you had multiple wounds on your right foot. It is likely a complication from your diabetes. You were given antibiotics and the wound was drained by the foot doctor. You will take these medications at home as instructed. 1. Clindamycin 300mg three times a day for 1 week. 2. Levaquin 500mg once a day for 1 week. 3. Lactobacillus (Bacid) 1 tablet for 30 days. Continue your home medications as prescribed. Keep the wound clean and dry at all times. Follow-ups: -You have a follow-up with the foot doctor (Dr. Glass) on 05/29/2018 at the wound healing center at [facility]. Call [phone] to make an appointment. -Follow-up with your primary care doctor within 1 week. Call [phone] or go to the ED if with any worsening fever, chills, shortness of breath, or any new concerns noted. Referrals: Doni Guzman MD [Staff Physician] - Rogelio Glass MD [Staff Physician] - Teo aNvarro MD [Primary Care Provider] - Jose Luis Escalante MD [Staff Physician] - Disposition: HOME - Home Medications Comprehensive Discharge Medication List: Ambulatory Orders Atorvastatin Calcium 20 mg PO DAILY 04/13/18 Carbamazepine 200 mg PO BID 04/13/18 Lisinopril [Zestril] 2.5 mg PO DAILY 04/13/18 Tamsulosin HCl 0.4 mg PO DAILY 04/13/18 Clindamycin [Cleocin -] 300 mg PO TID #21 capsule 05/22/18 Insulin Glargine,Hum.rec.anlog [Darlene Giles U-100] 20 unit SQ BID #0 units 05/22/18 Lactobacillus Acidophilus [Bacid -] 1 each PO DAILY #30 capsule 05/22/18 levoFLOXacin [Levaquin -] 500 mg PO DAILY #7 tablet 05/22/18 This patient is new to me today: Yes Date on this admission: 05/22/18 Emergency Visit: Yes ED Registration Date: 05/18/18 Care time: The patient presented to the Emergency Department on the above date and was hospitalized for further evaluation of their emergent condition. Critical Care patient: No - Discharge Referral Referred to [facility] Med [facility] No
== END 2018-05-22 18:55 | disposition home or self-care (01) | DRG 380 ==
LOC: JER 17:52 → JERBED 05-18 00:40 → J6S 05-18 16:01
PROVIDERS: ADMIT Internal Medicine; ATTEND Internal Medicine
PROC: 0JBQ0ZZ Excision of Right Foot Subcutaneous Tissue and Fascia, Open Approach (ICD-10-PCS; principal; 2018-05-19)
DX: E11.621 Type 2 diabetes mellitus with foot ulcer (principal); E78.5 Hyperlipidemia, unspecified; I10 Essential (primary) hypertension; N40.0 Benign prostatic hyperplasia without lower urinary tract symptoms; L03.115 Cellulitis of right lower limb; L97.419 Non-pressure chronic ulcer of right heel and midfoot with unspecified severity; N17.9 Acute kidney failure, unspecified; E86.1 Hypovolemia
CPT/HCPCS: 36415; 71046-TC-FY; 73660-TC-FY; 73702-TC-RT; 73721-RT-TC; 80048; 80053; 82962; 83036; 83735; 84100; 85025; 85027; 85610; 87040; 87070; 87186; 87205; 90688; 90732; 93005; 93010; 99284-25; G0008; G0009; G0480; J0131; J1644; J7030